=== PATIENT | male | born 1950 | race Caucasian/White ===

== ENCOUNTER 2019-02-10 19:14 | Inpatient (IN) | payer OTHER ==
--- NOTE | 2019-02-10 19:34 | PDOC ---
Rapid Medical Evaluation Time Seen by Provider: 02/10/19 19:16 Medical Evaluation: 02/10/19 19:17 Patient complains of: llq pain, elevated wbc, sent from urgent care had xray and scrotal u/s which were -, no fever or diarrhea, denies hx of GI Patient on brief exam: llq tenderness, vss Patient ordered for: abd ct, wbc,cbc, lipase, ua, ucx Patient to proceed to the ED Discharge Disposition - Diagnosis LLQ pain, Renal infarct - Discharge Dispostion Condition at time of disposition: Improved - Referrals - Patient Instructions - Post Discharge Activity
--- NOTE | 2019-02-10 20:51 | PDOC ---
History of Present Illness - General Chief Complaint: Pain Stated Complaint: REFERRAL FOR CT Time Seen by Provider: 02/10/19 19:16 History Source: Patient Exam Limitations: No Limitations - History of Present Illness Initial Comments: 68 yo M who denies having any medical hx - states he hasn't seen a doctor in 40 years presents to the ER sent from urgent care with LLQ abdominal pain which began last night at 3 am. He was seen at urgent care earlier today where they juan david labs that were significant for a mild leukocytosis and a abdominal x-ray and testicular US which were unremarkable. The patient was referred to the ER to have an abdominal cat scan to assess for diverticulitis. The patient rates his pain as 8/10, states it is constant in nature, has not gotten better or worse since it began this morning, and feels like a sharp stabbing pain. The patient denies any nausea or vomiting. His last bowel movement was this morning which he states might have been mildly loose and watery. Otherwise he denies any constipation or diarrhea. Patient also denies recent fevers, chills, or infections. Denies dysuria, frequency, or urgency. PCP: None PSH:None reported Social Hx: Denies smoking, drinking, or other substance usage. Allergies: NKA, NKDA Past History - Past Medical History Allergies/Adverse Reactions: Allergies Allergy/AdvReac Type Severity Reaction Status Date / Time No Known Allergies Allergy Verified 02/10/19 19:20 Home Medications: Ambulatory Orders NK [No Known Home Medication] 02/10/19 - Suicide/Smoking/Psychosocial Hx Smoking History: Never smoked Have you smoked in the past 12 months: No Information on smoking cessation initiated: No Hx Alcohol Use: No Drug/Substance Use Hx: No Review of Systems - Review of Systems Able to Perform ROS?: Yes Comments:: CONSTITUTIONAL: Absent: fever, no chills, no fatigue EYES: Absent: visual changes ENT: Absent: ear pain, no sore throat CARDIOVASCULAR: Absent: chest pain, no palpitations RESPIRATORY: Absent: cough, no SOB GI: Present: Abdominal pain Absent: no nausea, no vomiting, no constipation, no diarrhea GENITOURINARY: Absent: dysuria, no frequency, no hematuria MUSKULOSKELETAL: Absent: back pain, no arthralgia, no myalgia SKIN: Absent: rash NEURO: Absent: headache *Physical Exam - Vital Signs Last Vital Signs Temp Pulse Resp BP Pulse Ox 98.3 F 75 20 160/80 96 02/10/19 19:18 02/10/19 19:18 02/10/19 19:18 02/10/19 19:18 02/10/19 19:18 - Physical Exam Comments: GENERAL: Well-appearing, well-nourished. Mild distress. HEENT: Normocephalic, atraumatic. PERRL, EOM intact. CARDIOVASCULAR: Normal S1, S2. Regular rate and rhythm. PULMONARY: No evidence of respiratory distress. Lungs clear to auscultation bilaterally. No wheezing, rales or rhonchi. ABDOMEN: There is TTP in the LLQ. Normal bowel sounds. Abdomen is still soft and non- distended. The abdomen is not rigid and there is no guarding or rebound. EXTREMITIES: Normal ROM in all four extremities. No gross deformities. SKIN: Warm, dry. No rash NEUROLOGICAL: No focal neurological deficits. ED Treatment Course - LABORATORY CBC & Chemistry Diagram: 02/10/19 21:18 02/10/19 21:18 Medical Decision Making - Medical Decision Making 68 yo M who denies having any medical hx - states he hasn't seen a doctor in 40 years presents to the ER sent from urgent care with LLQ abdominal pain which began last night at 3 am. He was seen at urgent care earlier today where they juan david labs that were significant for a mild leukocytosis and a abdominal x-ray and testicular US which were unremarkable. The patient was referred to the ER to have an abdominal cat scan to assess for diverticulitis. The patient rates his pain as 8/10, states it is constant in nature, has not gotten better or worse since it began this morning, and feels like a sharp stabbing pain. The patient denies any nausea or vomiting. His last bowel movement was this morning which he states might have been mildly loose and watery. Otherwise he denies any constipation or diarrhea. Patient also denies recent fevers, chills, or infections. Denies dysuria, frequency, or urgency. Vital Signs Temp Pulse Resp BP Pulse Ox 98.3 F 75 20 160/80 96 02/10/19 19:18 02/10/19 19:18 02/10/19 19:18 02/10/19 19:18 02/10/19 19:18 DDx IBNLT: diverticulitis, colitis, UTI/Pylo, renal colic, testicular torsion Plan: Labs, Urine, CTAP, IV hydration, EKG, analgesia, re-assess. Labs show leukocytosis and a mildly elevated lactic acid I have placed an IV and sent labs I brought patient to CT Signing out patient to Dr. Ruth for further care and disposition. *DC/Admit/Observation/Transfer Diagnosis at time of Disposition: LLQ pain - Referrals Referrals: Alan Garcia MD [Staff Physician] - [facility] – [place] [facility] [place] [place] [Provider Group] - Patient Instructions - Post Discharge Activity
[2019-02-10] MEDS ORDERED: FAMOTIDINE 20 MG/50 ML IVPB 20 MG/50 ML MG IVPB ONE ×2 (21:01→21:29)
[2019-02-10] MEDS ORDERED: ACETAMINOPHEN 1000 MG/100 ML VIAL (NON FORMULARY) IVPB ONE (21:01)
[2019-02-10] MEDS ORDERED: SODIUM CHLORIDE 1,000 ML IV STA (21:01)
[2019-02-10] MEDS ORDERED: ACETAMINOPHEN INJECTION 100 ML IVPB ONE (21:29)
[2019-02-10 21:33] LABS: BASO % 0.3 % (0-2.0); HEMATOCRIT 39.6 % (35.4-49); HEMOGLOBIN 13.7 GM/dL (11.7-16.9); MCH 31.3 pg (25.7-33.7); MCHC 34.6 g/dl (32.0-35.9); MEAN CELL VOLUME 90.6 fl (80-96); MEAN PLT VOLUME 8.3 fl (7.5-11.1); MONO % 5.2 % (3.8-10.2); NEUT % 85.5 % (42.8-82.8); PLATELET COUNT 336 K/MM3 (134-434); RBC 4.38 M/mm3 (4.00-5.60); RDW 14.2 % (11.9-15.9); WHITE BLOOD COUNT 13.2 K/mm3 (4.0-10.0)
[2019-02-10 21:43] LABS: INR 1.17 (0.83-1.09); PROTHROMBIN TIME (PATIENT) 13.8 SEC (9.7-13.0)
[2019-02-10 21:55] LABS: ALBUMIN 3.8 g/dl (3.4-5.0); BILIRUBIN,TOTAL 0.6 mg/dL (0.2-1); BLOOD UREA NITROGEN 12.6 mg/dL (7-18); CALCIUM 9.4 mg/dL (8.5-10.1); CREATININE 1.1 mg/dL (0.55-1.3); POTASSIUM 4.4 mmol/L (3.5-5.1)
[2019-02-10 22:38] LABS: PH,URINE 5.5 (5.0-8.0); URINE APPEARANCE CLEAR; URINE BILIRUBIN NEGATIVE (NEGATIVE); URINE COLOR YELLOW; URINE GLUCOSE (UA) NEGATIVE (NEGATIVE); URINE KETONE TRACE (NEGATIVE); URINE LEUK ESTERASE NEGATIVE (NEGATIVE); URINE NITRITE NEGATIVE (NEGATIVE); URINE PROTEIN TRACE (NEGATIVE); URINE UROBILINOGEN 0.2 mg/dL (0.2-1.0)
[2019-02-10] MEDS ORDERED: SODIUM CHLORIDE 0.9% 1000 ML INFUS.BAG IV ONE (23:31)
--- NOTE | 2019-02-10 23:33 | PDOC ---
*Physical Exam - Vital Signs Last Vital Signs Temp Pulse Resp BP Pulse Ox 98.3 F 75 20 160/80 96 02/10/19 19:18 02/10/19 19:18 02/10/19 19:18 02/10/19 19:18 02/10/19 19:18 ED Treatment Course - LABORATORY CBC & Chemistry Diagram: 02/10/19 21:18 02/10/19 21:18 - ADDITIONAL ORDERS Additional order review: Laboratory Results 02/10/19 02/10/19 02/10/19 22:24 21:18 21:18 PT with INR 13.80 H INR 1.17 H Sodium Potassium Chloride Carbon Dioxide Anion Gap BUN Creatinine Est GFR (CKD-EPI)AfAm Est GFR (CKD-EPI)NonAf Random Glucose Lactic Acid Calcium Total Bilirubin AST ALT Alkaline Phosphatase Total Protein Albumin Lipase Urine Color Yellow Urine Appearance Clear Urine pH 5.5 Ur Specific [place] 1.027 Urine Protein Trace Urine Glucose (UA) Negative Urine Ketones Trace H Urine Blood Negative Urine Nitrite Negative Urine Bilirubin Negative Urine Urobilinogen 0.2 Ur Leukocyte Esterase Negative Blood Type O POSITIVE Antibody Screen Negative 02/10/19 02/10/19 21:18 21:18 PT with INR INR Sodium 132 L Potassium 4.4 Chloride 98 Carbon Dioxide 26 Anion Gap 8 BUN 12.6 Creatinine 1.1 Est GFR (CKD-EPI)AfAm 80.65 Est GFR (CKD-EPI)NonAf 69.58 Random Glucose 131 H Lactic Acid 2.1 H Calcium 9.4 Total Bilirubin 0.6 AST 87 H ALT 60 Alkaline Phosphatase 94 Total Protein 8.0 Albumin 3.8 Lipase 92 Urine Color Urine Appearance Urine pH Ur Specific [place] Urine Protein Urine Glucose (UA) Urine Ketones Urine Blood Urine Nitrite Urine Bilirubin Urine Urobilinogen Ur Leukocyte Esterase Blood Type Antibody Screen 02/10/19 21:18 RBC 4.38 MCV 90.6 MCHC 34.6 RDW 14.2 MPV 8.3 Neutrophils % 85.5 H Lymphocytes % 9.0 Monocytes % 5.2 Eosinophils % 0.0 Basophils % 0.3 - Medications Given in the ED: ED Medications Discontinued Medications Generic Name Dose Route Start Last Admin Trade Name Freq PRN Reason Stop Dose Admin Acetaminophen 1,000 mg 02/10/19 21:01 02/10/19 21:40 Ofirmev Injection - IVPB 02/10/19 21:02 1,000 mg ONCE ONE Administration Famotidine/Sodium Chloride 20 mg in 50 mls @ 100 mls/hr 02/10/19 21:01 22:00 Pepcid 20 Mg Premixed Ivpb - IVPB 02/10/19 21:30 100 mls/hr ONCE ONE Administration Sodium Chloride 1,000 mls @ 1,000 mls/hr 02/10/19 21:01 02/10/19 21:25 Normal Saline - IV 02/10/19 22:00 1,000 mls/hr ASDIR STA Administration Medical Decision Making - Medical Decision Making 02/10/19 23:32 Pt signed out to me by Dr. Antoine. 68M who presents with LLQ pain and mildly elevated lactic and leukocytosis concerning for diverticulitis. Pending CT read. UA negative. US of testicles from UC negative. 02/10/19 23:50 CT Impression: Segmental areas of nonenhancement in the left kidney some of which are wedge-shaped suggestive of nephritis/pyelonephritis. Differential diagnosis includes ischemic insult. However, there is normal enhancement of the left renal artery. If clinically indicated a CT angiogram of the abdominal aorta and renal arteries could be obtained. A few diverticula in the sigmoid colon without evidence of acute diverticulitis pain There are nondistended segments of the colon without gross wall thickening. Enlarged prostate gland. Vascular surgery paged for recs. 02/11/19 00:08 Vascular surgery paged x 2. 02/11/19 01:23 Case d/w Dr. Pires, vascular, who does not recommend any acute therapies and will follow the patient on an inpatient basis. Will microblog for admission. 02/11/19 01:[address] Grayson for admission. *DC/Admit/Observation/Transfer Diagnosis at time of Disposition: LLQ pain, Renal infarct - Discharge Dispostion Condition at time of disposition: Guarded Decision to Admit order: Yes - Referrals Referrals: [facility] [place] [facility] at [place] [Provider Group] Alan Garcia MD [Staff Physician] - - Patient Instructions - Post Discharge Activity
[2019-02-10] MEDS ORDERED: morphine CARPU-JECT 4 MG/1 ML DISP.SYRIN IVPUSH ONE (23:40)
[2019-02-10] MEDS ORDERED: morphine SULFATE 4 MG/ML VIAL ONE (23:47)
[2019-02-11] MEDS ORDERED: HYDROmorphone HCL CARPU-JECT 2 MG/1 ML DISP.SYRIN IVPUSH ONE (01:22)
[2019-02-11] MEDS ORDERED: HYDROmorphone HCl 2 MG/ML VIAL ONE (01:31)
--- NOTE | 2019-02-11 01:50 | PDOC ---
Documentation entered by Oracio Pugh SCRIBE, acting as scribe for Madelyn Sawyer DO. Madelyn Sawyer DO: This documentation has been prepared by the Keaton cooley Elijah, SCRIBE, under my direction and personally reviewed by me in its entirety. I confirm that the documentation accurately reflects all work , treatment, procedures, and medical decision making performed by me. Attending Attestation - Resident Resident Name: Ac Samuels - ED Attending Attestation I have performed the following: I have examined & evaluated the patient, The case was reviewed & discussed with the resident, I agree w/resident's findings & plan - HPI HPI: 02/10/19 21:56 The patient is a 68 year old male with no reported significant past medical history (Reports not seeing his doctor for 40 years) who presents to the ED with abdominal pain in the LLQ beginning the night prior at 3am. The patient rates the pain at an 8/10, constant, sharp and stabbing. LBM was this morning and he reports it being watery. The patient was seen at an urgent care earlier today and he had elevated WBCs but the Abdominal X-Ray and Testicular US were negative. He was told to come to the ED in order to get a CT scan to check for diverticulitis. Denies nausea, vomiting, constipation, diarrhea, fever, chills, infection, dysuria, Urinary frequency/Urgency. Allergies: NKA - Physicial Exam PE: 02/10/19 21:56 Agree with Residents exam - Medical Decision Making 02/11/19 01:48 68-year-old male with left lower quadrant and left flank pain CT scan of the abdomen and pelvis was performed initially to rule out diverticulitis, it was revealed there is a possible left renal infarct CTA was recommended, unfortunately the patient already received maximum dye load Call placed to vascular surgery for consultation, recommendation is for admission to medical service with CTA after hydration tomorrow
--- NOTE | 2019-02-11 01:59 | PN ---
Teaching Attending Note Name of Resident: Joel Grayson ATTENDING PHYSICIAN STATEMENT I saw and evaluated the patient. I reviewed the resident's note and discussed the case with the resident. I agree with the resident's findings and plan as documented. SUBJECTIVE: Seen and examined; please refer to resident note for further historical information. Briefly, this is a 68 y/o male presenting for abdominal pain radiating to the testicles. Pain startted early in the AM on 02/10. He went to urgent care and was found to have leukocytosis; had negative scrotal US and negative KUB so they were referred here for further workup with CT. He doesn't followup with any primary care physician. CT scan shows wedge-shaped enhancement in the L-kidney. Dr. Pires was contacted by the ER who will see the patient in AM and decide on further workup. Leukocytosis to 13k and mildly positive lactate. Negative UA and mild hyperglycemia and transaminitis noted. 10 sys ROS done and negative aside from HPI PMH, PSH, FH, SH reviewed Home Medications Medication Instructions Recorded NK [No Known Home Medication] 02/10/19 OBJECTIVE: VS, labs, imaging reviewed NAD, AAO, resting comfortably in bed NC AT EOMI PERRLA RRR s1/2 no mgr Lungs CTAB, w/ sym exp NT (just got pain meds at this point, though) ND +BS L-testicle non-tender CN2-12 wnl, no fnd Normal mood, appropriate behavior EKG reviewed CXR reviewed CT shows segmental areas of non-enhancment in the L-kidney someof which is wedge shaped suggesting nephritis or pyelonephritis or ischemic insult. ASSESSMENT AND PLAN: Patient presents with abdominal pain radiating to the testicle found to have area of wedge-shaped non-enhancement in his L-kidney; Dr. Pires is aware and will see the patient in the AM 1) Wedge-Shaped area of nonenchancement in the setting of abdominal pain -UA without signs of infection or blood making nephritis/pyelo less likely -PRN Dilaudid -Followup with Dr. Pires's recommendations; apprecaite expert input. Per ER: "Case d/w Dr. Pires, vascular, who does not recommend any acute therapies" 2) Elevated AST -Denies EtOH abuse; very mild. Trend CMP. Consider further imaging/hepatitis testing without resolution. 3) Leukocytosis -Trend CBC; may be reactive. No fevers. Negative UA 4) Mild Hyponatremia -Hydrating; checking serum osm. If worsens will obtain urine lytes and consider nephrology consult. Followup repeat BMP.
[2019-02-11] MEDS ORDERED: LACTATED RINGERS SOLUTION 1,000 ML IV SCH (02:15)
--- NOTE | 2019-02-11 02:30 | HP ---
CHIEF COMPLAINT: Abdominal Pain PCP: None HISTORY OF PRESENT ILLNESS: Pt. is a 68 y.o. M w/o PMHx. who presents to the ED from urgent care for abdominal pain that started at 3am 02/10/19. Pt. states that he also has developed left testicular pain as well. At the urgent care Pt. had a labs drawn that revealed leukocytosis. Pt. had a KUB and scrotal US which were negative for acute pathology. He was ten referred to the ED for an abdominal CT. Pt. denies taking any medications for the pain. Pt. states he has been feeling nauseous over this time and has had non-bloody emesis x 3. Pt. endorses 1 loose BM. Pt. denies any constipation, chest pain, palpitations, shortness of breath, fever, chills, or changes in urination. ER course was notable for: (1)CT A/P, IVF, UA/UCx. (2) Consult w/ Dr. Pires (3)Famotidine, Morphine, Dilaudid, IV Tylenol Recent Travel: Did not ask PAST MEDICAL HISTORY: Denies PAST SURGICAL HISTORY: Denies Social History: Smoking: Denies Alcohol: 11-12 12 Oz beers daily from [age], now denies Drugs: Denies Family History: Brother from Pancreatic CA @ 67, Father had massive VT @ 54 , Mother from CHF @ 76, Brother had history of clotting disorder Allergies No Known Allergies Allergy (Verified 02/10/19 19:20) HOME MEDICATIONS: Home Medications Medication Instructions Recorded NK [No Known Home Medication] 02/10/19 REVIEW OF SYSTEMS As above PHYSICAL EXAMINATION Vital Signs - 24 hr 02/10/19 19:18 Temperature 98.3 F Pulse Rate 75 Respiratory 20 Rate Blood Pressure 160/80 O2 Sat by Pulse 96 Oximetry (%) GENERAL: Awake, alert, and fully oriented, in no acute distress. HEAD: Normal with no signs of trauma. EYES: Pupils equal, round and reactive to light, extraocular movements intact, sclera anicteric, conjunctiva clear. EARS, NOSE, THROAT: Ears normal, nares patent, oropharynx clear without exudates. Moist mucous membranes. NECK: Normal range of motion, supple without lymphadenopathy, JVD, or masses. LUNGS: Breath sounds equal, clear to auscultation bilaterally. No wheezes, and no crackles. No accessory muscle use. HEART: Regular rate and rhythm, normal S1 and S2 without murmur ABDOMEN: Soft, nontender, not distended, normoactive bowel sounds, no guarding, no rebound, no masses. Tested non-tender. MUSCULOSKELETAL: Normal range of motion at all joints. No bony deformities or tenderness. No CVA tenderness. UPPER EXTREMITIES: Warm, well-perfused. No cyanosis. No clubbing. No peripheral edema. LOWER EXTREMITIES: 2+ pulses, warm, well-perfused. No calf tenderness. No peripheral edema. NEUROLOGICAL: Normal speech. Gait not assessed. PSYCHIATRIC: Cooperative. Good eye contact. Appropriate mood and affect. SKIN: Warm, dry, normal turgor, venous stasis changes, normal capillary refill. Laboratory Results - last 24 hr 02/10/19 02/10/19 02/10/19 21:18 21:18 21:18 WBC 13.2 H RBC 4.38 Hgb 13.7 Hct 39.6 MCV 90.6 MCH 31.3 MCHC 34.6 RDW 14.2 Plt Count 336 MPV 8.3 Absolute Neuts (auto) 11.3 H Neutrophils % 85.5 H Lymphocytes % 9.0 Monocytes % 5.2 Eosinophils % 0.0 Basophils % 0.3 Nucleated RBC % 0 PT with INR INR Sodium 132 L Potassium 4.4 Chloride 98 Carbon Dioxide 26 Anion Gap 8 BUN 12.6 Creatinine 1.1 Est GFR (CKD-EPI)AfAm 80.65 Est GFR (CKD-EPI)NonAf 69.58 Random Glucose 131 H Lactic Acid 2.1 H Calcium 9.4 Total Bilirubin 0.6 AST 87 H ALT 60 Alkaline Phosphatase 94 Total Protein 8.0 Albumin 3.8 Lipase 92 Urine Color Urine Appearance Urine pH Ur Specific [place] Urine Protein Urine Glucose (UA) Urine Ketones Urine Blood Urine Nitrite Urine Bilirubin Urine Urobilinogen Ur Leukocyte Esterase Blood Type Antibody Screen 02/10/19 02/10/19 02/10/19 21:18 21:18 22:24 WBC RBC Hgb Hct MCV MCH MCHC RDW Plt Count MPV Absolute Neuts (auto) Neutrophils % Lymphocytes % Monocytes % Eosinophils % Basophils % Nucleated RBC % PT with INR 13.80 H INR 1.17 H Sodium Potassium Chloride Carbon Dioxide Anion Gap BUN Creatinine Est GFR (CKD-EPI)AfAm Est GFR (CKD-EPI)NonAf Random Glucose Lactic Acid Calcium Total Bilirubin AST ALT Alkaline Phosphatase Total Protein Albumin Lipase Urine Color Yellow Urine Appearance Clear Urine pH 5.5 Ur Specific [place] 1.027 Urine Protein Trace Urine Glucose (UA) Negative Urine Ketones Trace H Urine Blood Negative Urine Nitrite Negative Urine Bilirubin Negative Urine Urobilinogen 0.2 Ur Leukocyte Esterase Negative Blood Type O POSITIVE Antibody Screen Negative ASSESSMENT/PLAN: Pt. is a 68 y.o. M w/o PMHx. who presents to the ED from urgent care for abdominal pain that started at 3am 02/10/19 with associated left testicular pain. #Abdominal Pain 2/[address] AP: shows segmental area of non-enhancement in left kidney, wedge shaped suggestive of ischemia, however renal enhancement of left renal artery, recommending CT angio of abdominal aorta and renal arteries Low suspicion for nephritis/pyelonephritis as Pt. has no blood in UA and has been afebrile Consult to Dr. Pires appreciated--> recommending observation, will evaluate in AM Will likely need AC on discharge versus endovascular intervention after Angiogram. f/u Lipid Panel LA: 2.1, f/u rpt. Leukocytosis to 13.2k, c/w trend f/u Factor V, Protein C & S studies #Isolated elevation in AST likely due to past history of EtOH abuse trend LFTs #Hyponatremia Na: 132, trend f/u Serum Osmolality #FEN LR @ 75ml/hr monitor electrolytes and replete as needed NPO, pending possible intervention in AM #DVT Ppx. TEDs/SCDs Visit type - Emergency Visit Emergency Visit: Yes ED Registration Date: 02/11/19 Care time: The patient presented to the Emergency Department on the above date and was hospitalized for further evaluation of their emergent condition. - New Patient This patient is new to me today: Yes Date on this admission: 02/11/19 - Critical Care Critical Care patient: No
[2019-02-11 03:30] LABS: CHOLESTEROL 186 mg/dL (50-200); HDL CHOLESTEROL 41 mg/dL (40-60); TRIGLYCERIDES 141 mg/dL (0-150)
[2019-02-11 03:51] LABS: OSMOLALITY,SERUM 279 mosm/kg (278-305)
[2019-02-11 05:01] VITALS: BMI 29.0
[2019-02-11] MEDS ORDERED: HEPARIN NA (PORCINE) 5,000 UNITS/ML 1ML VIAL SQ SCH (06:00)
[2019-02-11 07:23] LABS: BASO % 0.3 % (0-2.0); HEMOGLOBIN 12.6 GM/dL (11.7-16.9); LYMPH % 7.1 % (8-40); MCH 31.4 pg (25.7-33.7); MCHC 34.9 g/dl (32.0-35.9); MEAN CELL VOLUME 89.8 fl (80-96); MEAN PLT VOLUME 8.4 fl (7.5-11.1); MONO % 7.5 % (3.8-10.2); NEUT % 85.1 % (42.8-82.8); PLATELET COUNT 291 K/MM3 (134-434); RBC 4.01 M/mm3 (4.00-5.60)
[2019-02-11 07:47] LABS: ALBUMIN 3.2 g/dl (3.4-5.0); BILIRUBIN,TOTAL 0.6 mg/dL (0.2-1); BLOOD UREA NITROGEN 9.5 mg/dL (7-18); CALCIUM 8.7 mg/dL (8.5-10.1); PHOSPHOROUS 3.5 mg/dL (2.5-4.9); POTASSIUM 4.5 mmol/L (3.5-5.1); TOT PROT 6.7 g/dl (6.4-8.2)
--- NOTE | 2019-02-11 08:08 | EKG ---
Test Reason : Blood Pressure : / mmHG Vent. Rate : 082 BPM Atrial Rate : 082 BPM P-R Int : 200 ms QRS Dur : 102 ms QT Int : 398 ms P-R-T Axes : 030 -23 034 degrees QTc Int : 464 ms NORMAL SINUS RHYTHM WITH SINUS ARRHYTHMIA INFERIOR INFARCT , AGE UNDETERMINED ABNORMAL ECG NO PREVIOUS ECGS AVAILABLE Confirmed by PEGGY SMITH MD ([id number]) on 02/11/2019 8:07:50 AM Referred By: Confirmed By:PEGGY SMITH MD
[2019-02-11] MEDS: HYDROmorphone HCl 2 MG/ML VIAL IVPB PRN ×2 (08:20→20:35)
--- NOTE | 2019-02-11 08:39 | CONSULT ---
- Consultation REQUESTING PROVIDER: CONSULT REQUEST: We have been asked to surgically evaluate this patient for (? renal infarct). PCP:Faustino Rose MD HISTORY OF PRESENT ILLNESS: 68 y/o M w/ no known PMHx (has not been to [facility] in > 30 years), now admitted after being sent to ED from urgent care center for abdominal pain. Pt reports he began having pain in the left side of his abdomen on Saturday. Reports pain was 6/10 beginning over the left side of his abdomen and radiating into his left testicle. Reports accompanied nausea and emesis of his breakfast and coffee x 3. Denies taking any OTC meds for pain. Denies fevers /chills, prior h/o kindey stone/urologic issues, h/o prior known infartcs/dvts/ pes, urinary frequency, dysuria, constipation. Had 1 loose BM. At urgent care pt had a KUB and scrotal US which were negative for acute pathology. PMHx: unknown (has not seen PCP in >30 years) PSHx: Denies Home Medications Medication Instructions Recorded NK [No Known Home Medication] 02/10/19 Allergies Allergy/AdvReac Type Severity Reaction Status Date / Time No Known Allergies Allergy Verified 02/10/19 19:20 REVIEW OF SYSTEMS: CONSTITUTIONAL: Absent: fever, chills CARDIOVASCULAR: Absent: chest pain RESPIRATORY: Absent: cough, shortness of breath GASTROINTESTINAL: +abdominal pain GENITOURINARY: Absent: dysuria, frequency, urgency PHYSICAL EXAM: GENERAL: Awake, alert, and fully oriented, in no acute distress. HEAD: Normal with no signs of trauma. ABDOMEN: Soft, minimal ttp L mid quadrant and LLQ. No distention, normoactive bowel sounds, no guarding, no rebound. MUSCULOSKELETAL: Normal ROM at all joints. No bony deformities or tenderness. No CVA tenderness. Vital Signs Temperature 98.4 F 02/11/19 06:56 Pulse Rate 78 02/11/19 06:56 Respiratory Rate 20 02/11/19 06:56 Blood Pressure 133/90 02/11/19 06:56 O2 Sat by Pulse Oximetry (%) 95 02/11/19 03:00 Lab Results WBC 13.2 K/mm3 (4.0-10.0) H 02/10/19 21:18 RBC 4.38 M/mm3 (4.00-5.60) 02/10/19 21:18 Hgb 13.7 GM/dL (11.7-16.9) 02/10/19 21:18 Hct 39.6 % (35.4-49) 02/10/19 21:18 MCV 90.6 fl (80-96) 02/10/19 21:18 MCHC 34.6 g/dl (32.0-35.9) 02/10/19 21:18 RDW 14.2 % (11.9-15.9) 02/10/19 21:18 Plt Count 336 K/MM3 (134-434) 02/10/19 21:18 Sodium 133 mmol/L (136-145) L 02/11/19 06:30 Potassium 4.5 mmol/L (3.5-5.1) 02/11/19 06:30 Chloride 100 mmol/L (98-107) 02/11/19 06:30 Carbon Dioxide 27 mmol/L (21-32) 02/11/19 06:30 Anion Gap 6 MMOL/L (8-16) L 02/11/19 06:30 BUN 9.5 mg/dL (7-18) 02/11/19 06:30 Creatinine 1.0 mg/dL (0.55-1.3) 02/11/19 06:30 Random Glucose 112 mg/dL (74-106) H 02/11/19 06:30 Calcium 8.7 mg/dL (8.5-10.1) 02/11/19 06:30 Blood Type O POSITIVE 02/10/19 21:18 Antibody Screen Negative 02/10/19 21:18 INR 1.17 (0.83-1.09) H 02/10/19 21:18 CT abdo/pelvis with contrast (02/10/19): Segmental areas of nonenhancement in the left kidney some of which are wedge-shaped suggestive of nephritis/ pyelonephritis. Differential diagnosis includes ischemic insult. However, there is normal enhancement of the left renal artery. If clinically indicated a CT angio of the abdominal aorta and renal arteries could be obtained. A/P: 68 y/o M w/ no known PMHx (has not been to [facility] in >30 years), now admitted after being sent to ED from urgent care center for abdominal pain. Ct with ?of ischemic insult. Pt with normal creatinine, admitted with leukocytosis of 13k. Urine culture pending. SXS more consistent with infectious process than vascular issue -CTA abdo/pelvis per Dr Pires for delination of anatomy and r/o of infarct d/w attending Dr Pires
[2019-02-11] MEDS ORDERED: CEFTRIAXONE 1 GM in DEXTROSE 5%-WATER - 50 ML IVPB SCH (10:15)
--- NOTE | 2019-02-11 13:13 | PN ---
Physical Exam: SUBJECTIVE: Patient seen this morning and complaints of pain in his testicle and abdomen. OBJECTIVE: Vital Signs Temperature 98.4 F 02/11/19 06:56 Pulse Rate 78 02/11/19 06:56 Respiratory Rate 20 02/11/19 06:56 Blood Pressure 133/90 02/11/19 06:56 O2 Sat by Pulse Oximetry (%) 95 02/11/19 03:00 GENERAL: The patient is awake, alert, and fully oriented, in no acute distress. HEAD: Normal with no signs of trauma. EYES: PERRL, extraocular movements intact ENT: moist mucous membranes. LUNGS: Breath sounds equal, clear to auscultation bilaterally, no wheezes, no crackles, no accessory muscle use. HEART: Regular rate and rhythm, S1, S2 without murmur, rub or gallop. ABDOMEN: left sided distension, soft mid epigastric, no tenderness : no pain on palpation of left testicle, no erythema, no swelling EXTREMITIES: 2+ pulses, warm, well-perfused, no edema. SKIN: Warm, dry, normal turgor, no rashes or lesions noted CBC, BMP 02/11/19 06:30 02/11/19 06:30 Active Medications Hydromorphone HCl (Dilaudid Vial -) 2 mg IVPB Q2H PRN PRN Reason: PAIN LEVEL 7 - 10 Last Admin: 02/11/19 08:20 Dose: 2 mg Lactated Ringer's (Lactated Ringers Solution) 1,000 mls @ 75 mls/hr IV ASDIR MUKESH Ceftriaxone Sodium 1 gm/ (Dextrose) 50 mls @ 100 mls/hr IVPB DAILY MUKESH; Protocol ASSESSMENT/PLAN: Patient is a 68 y/o male with no past medical history who presents for abdominal pain and testicular pain. #abdominal pain and testicular pain - r/o pyelonephritis vs vascular infarction - CT: segmental areas of nonenhancement in the left kidney some which are wedge shaped, few diverticula in sigmoid colon without eveidence of acute diverticulitis pain, enlarged prostate gland - dilaudid 2mg q2 prn pain - f/u CTA - spoke with Dr. Pires: unlikely vascular in nature, would cover for pyelo - hypercoaguable workup. follow up labs - started patient on Ceftriaxone #DVT ppx - SCD's ppx FEN - LR @100 - regular diet Dispo: continue to monitor Visit type - Emergency Visit Emergency Visit: No - New Patient This patient is new to me today: No - Critical Care Critical Care patient: No
[2019-02-11] MEDS ORDERED: DEXTROSE 5%-WATER - 50 ML IVPB ONE (13:25)
[2019-02-11] MEDS ORDERED: cefTRIAXone SODIUM 1 GM VIAL ONE (13:25)
--- NOTE | 2019-02-11 17:25 | PN ---
Teaching Attending Note Name of Resident: Belle Reid ATTENDING PHYSICIAN STATEMENT I saw and evaluated the patient. I reviewed the resident's note and discussed the case with the resident. I agree with the resident's findings and plan as documented. SUBJECTIVE: L flank/abdominal pain improving. No dysuria/fever/chills. OBJECTIVE: Tmax 100.9, febrile, Hemodynamically Stable Last Vital Signs Temp Pulse Resp BP Pulse Ox 100.9 F H 78 20 116/62 95 02/11/19 17:19 02/11/19 17:19 02/11/19 17:19 02/11/19 17:19 02/11/19 09:00 HEENT - Atraumatic, Normocephalic. Heart -S1, S2, RRR Lungs - clear to auscultation Abdomen - soft, left flank tenderness. Bowel Sounds normal. Extremities - LE venous stasis skin changes Laboratory Results - last 24 hr 02/10/19 02/10/19 02/10/19 21:18 21:18 21:18 WBC 13.2 H RBC 4.38 Hgb 13.7 Hct 39.6 MCV 90.6 MCH 31.3 MCHC 34.6 RDW 14.2 Plt Count 336 MPV 8.3 Absolute Neuts (auto) 11.3 H Neutrophils % 85.5 H Lymphocytes % 9.0 Monocytes % 5.2 Eosinophils % 0.0 Basophils % 0.3 Nucleated RBC % 0 PT with INR INR Sodium 132 L Potassium 4.4 Chloride 98 Carbon Dioxide 26 Anion Gap 8 BUN 12.6 Creatinine 1.1 Est GFR (CKD-EPI)AfAm 80.65 Est GFR (CKD-EPI)NonAf 69.58 Random Glucose 131 H Hemoglobin A1c % Serum Osmolality Lactic Acid 2.1 H Calcium 9.4 Phosphorus Magnesium Total Bilirubin 0.6 AST 87 H ALT 60 Alkaline Phosphatase 94 Total Protein 8.0 Albumin 3.8 Triglycerides Cholesterol Total LDL Cholesterol HDL Cholesterol Lipase 92 Urine Color Urine Appearance Urine pH Ur Specific Allons Urine Protein Urine Glucose (UA) Urine Ketones Urine Blood Urine Nitrite Urine Bilirubin Urine Urobilinogen Ur Leukocyte Esterase Blood Type Antibody Screen 02/10/19 02/10/19 02/10/19 21:18 21:18 22:24 WBC RBC Hgb Hct MCV MCH MCHC RDW Plt Count MPV Absolute Neuts (auto) Neutrophils % Lymphocytes % Monocytes % Eosinophils % Basophils % Nucleated RBC % PT with INR 13.80 H INR 1.17 H Sodium Potassium Chloride Carbon Dioxide Anion Gap BUN Creatinine Est GFR (CKD-EPI)AfAm Est GFR (CKD-EPI)NonAf Random Glucose Hemoglobin A1c % Serum Osmolality Lactic Acid Calcium Phosphorus Magnesium Total Bilirubin AST ALT Alkaline Phosphatase Total Protein Albumin Triglycerides Cholesterol Total LDL Cholesterol HDL Cholesterol Lipase Urine Color Yellow Urine Appearance Clear Urine pH 5.5 Ur Specific Allons 1.027 Urine Protein Trace Urine Glucose (UA) Negative Urine Ketones Trace H Urine Blood Negative Urine Nitrite Negative Urine Bilirubin Negative Urine Urobilinogen 0.2 Ur Leukocyte Esterase Negative Blood Type O POSITIVE Antibody Screen Negative 02/11/19 02/11/19 02/11/19 02:55 02:55 02:55 WBC RBC Hgb Hct MCV MCH MCHC RDW Plt Count MPV Absolute Neuts (auto) Neutrophils % Lymphocytes % Monocytes % Eosinophils % Basophils % Nucleated RBC % PT with INR INR Sodium Potassium Chloride Carbon Dioxide Anion Gap BUN Creatinine Est GFR (CKD-EPI)AfAm Est GFR (CKD-EPI)NonAf Random Glucose Hemoglobin A1c % 5.8 Serum Osmolality 279 Lactic Acid 1.1 Calcium Phosphorus Magnesium Total Bilirubin AST ALT Alkaline Phosphatase Total Protein Albumin Triglycerides 141 Cholesterol 186 Total LDL Cholesterol 130 H HDL Cholesterol 41 Lipase Urine Color Urine Appearance Urine pH Ur Specific Allons Urine Protein Urine Glucose (UA) Urine Ketones Urine Blood Urine Nitrite Urine Bilirubin Urine Urobilinogen Ur Leukocyte Esterase Blood Type Antibody Screen 02/11/19 02/11/19 02/11/19 06:30 06:30 10:22 WBC 14.0 H RBC 4.01 Hgb 12.6 Hct 36.0 MCV 89.8 MCH 31.4 MCHC 34.9 RDW 14.0 Plt Count 291 MPV 8.4 Absolute Neuts (auto) 11.9 H Neutrophils % 85.1 H Lymphocytes % 7.1 L D Monocytes % 7.5 Eosinophils % 0.0 Basophils % 0.3 Nucleated RBC % 0 PT with INR INR Sodium 133 L Potassium 4.5 Chloride 100 Carbon Dioxide 27 Anion Gap 6 L BUN 9.5 Creatinine 1.0 Est GFR (CKD-EPI)AfAm 90.50 Est GFR (CKD-EPI)NonAf 78.08 Random Glucose 112 H Hemoglobin A1c % Serum Osmolality Lactic Acid Calcium 8.7 Phosphorus 3.5 Magnesium 2.0 Total Bilirubin 0.6 AST 88 H ALT 64 H Alkaline Phosphatase 79 Total Protein 6.7 Albumin 3.2 L Triglycerides Cholesterol Total LDL Cholesterol HDL Cholesterol Lipase Urine Color Urine Appearance Urine pH Ur Specific Allons Urine Protein Urine Glucose (UA) Urine Ketones Urine Blood Urine Nitrite Urine Bilirubin Urine Urobilinogen Ur Leukocyte Esterase Blood Type O POSITIVE Antibody Screen Current Medications Generic Name Dose Route Start Last Admin Trade Name Abeba PRN Reason Stop Dose Admin Hydromorphone HCl 2 mg 02/11/19 02:08 02/11/19 08:20 Dilaudid Vial - IVPB 2 mg Q2H PRN Administration PAIN LEVEL 7 - 10 Lactated Ringer's 1,000 mls @ 75 mls/hr 02/11/19 02:15 Lactated Ringers Solution IV ASDIR MUKESH Ceftriaxone Sodium 1 gm/ 50 mls @ 100 mls/hr 02/11/19 10:15 02/11/19 13:29 Dextrose IVPB 100 mls/hr DAILY MUKESH Administration Protocol ASSESSMENT/PLAN: 68 year old male with no significant PMH presented with L sided abdominal pain radiating to groin/testicles. No fever/chills/nausea/vomiting. US Testicles reported normal (done at [facility]) CT shows segmental areas of non-enhancement in the L-kidney some of which is wedge shaped suggesting nephritis or pyelonephritis or ischemic insult. 1. Acute Renal Infarct ?embolic Confirmed on CTA Vascular Surgery consulted and recommended empiric treatment for Pyelonephritis. Will start Lovenox SQ and order Echo with bubble study. Hematology consulted for Thrombophilia. 2. Sepsis secondary to UTI/Pyelonephritis Fever, leukocytosis Empirically covered with Ceftriaxone. Will continue Ceftriaxone pending Urine Cx results. 3. Elevated Transaminases, etiology unclear, possibly sec to sepsis. CT imaging shows hepatic cyst and mild fatty infiltration. Will monitor LFTs. Further imaging if any worsening of hepatic function. DVT Px - On Lovenox SQ
[2019-02-11] MEDS ORDERED: ENOXAPARIN NA (PORCINE) 40 MG/0.4 ML DISP.SYRIN SQ SCH (17:26)
[2019-02-11] MEDS: ENOXAPARIN NA (PORCINE) 100 MG/1 ML DISP.SYRIN SQ SCH (21:53)
--- NOTE | 2019-02-11 23:35 | PN ---
Progress Note (short form) - Note Progress Note: Vascular Surgery CTA reviewed - infarct in left kidney. Left main renal artery is patent. This could be embolic. Agree with echo. Cardiology eval Will follow Minesh Pires DO
[2019-02-12] MEDS: HYDROmorphone HCl 2 MG/ML VIAL IVPB PRN (07:40)
[2019-02-12 08:25] LABS: HEMATOCRIT 36.6 % (35.4-49); HEMOGLOBIN 12.6 GM/dL (11.7-16.9); MCH 30.9 pg (25.7-33.7); MCHC 34.5 g/dl (32.0-35.9); MEAN CELL VOLUME 89.8 fl (80-96); MEAN PLT VOLUME 8.6 fl (7.5-11.1); PLATELET COUNT 258 K/MM3 (134-434); RBC 4.08 M/mm3 (4.00-5.60); RDW 14.2 % (11.9-15.9); WHITE BLOOD COUNT 18.1 K/mm3 (4.0-10.0)
[2019-02-12 08:34] LABS: ALBUMIN 2.9 g/dl (3.4-5.0); BILIRUBIN,TOTAL 0.9 mg/dL (0.2-1); BLOOD UREA NITROGEN 10.1 mg/dL (7-18); CALCIUM 8.6 mg/dL (8.5-10.1); POTASSIUM 3.6 mmol/L (3.5-5.1); TOT PROT 6.5 g/dl (6.4-8.2)
[2019-02-12] MEDS ORDERED: cefTRIAXone SODIUM 1 GM VIAL ONE (08:53)
[2019-02-12] MEDS ORDERED: DEXTROSE 5%-WATER - 50 ML IVPB ONE (08:53)
[2019-02-12] MEDS ORDERED: PT OWN MED DRAWER 7, Y5N ONE (09:05)
[2019-02-12] MEDS: ENOXAPARIN NA (PORCINE) 100 MG/1 ML DISP.SYRIN SQ SCH ×2 (09:07→22:43)
[2019-02-12] MEDS ORDERED: HYDROmorphone HCL 2 MG TABLET PO PRN ×2 (09:18→21:27)
[2019-02-12] MEDS ORDERED: CEFTRIAXONE 1 GM in DEXTROSE 5%-WATER - 50 ML IVPB SCH (10:00)
--- NOTE | 2019-02-12 11:34 | PN ---
Teaching Attending Note Name of Resident: Belle Reid ATTENDING PHYSICIAN STATEMENT I saw and evaluated the patient. I reviewed the resident's note and discussed the case with the resident. I agree with the resident's findings and plan as documented. SUBJECTIVE: L flank/abdominal pain improved. No dysuria/fever/chills. No hematuria OBJECTIVE: Tmax 100.9, now 99.9, Hemodynamically Stable Last Vital Signs Temp Pulse Resp BP Pulse Ox 99.9 F H 89 20 135/77 95 02/12/19 07:21 02/12/19 07:21 02/12/19 07:21 02/12/19 07:21 02/11/19 21:00 Heart -S1, S2, RRR Lungs - clear to auscultation Abdomen - soft, mild left flank tenderness. No CVA tenderness. Bowel Sounds normal. Extremities - LE venous stasis skin changes, edema R> L Laboratory Results - last 24 hr 02/11/19 02/12/19 02/12/19 10:22 07:40 07:40 WBC 18.1 H RBC 4.08 Hgb 12.6 Hct 36.6 MCV 89.8 MCH 30.9 MCHC 34.5 RDW 14.2 Plt Count 258 MPV 8.6 Sodium 132 L Potassium 3.6 Chloride 99 Carbon Dioxide 26 Anion Gap 7 L BUN 10.1 Creatinine 1.0 Est GFR (CKD-EPI)AfAm 90.50 Est GFR (CKD-EPI)NonAf 78.08 Random Glucose 97 Calcium 8.6 Total Bilirubin 0.9 AST 79 H ALT 67 H Alkaline Phosphatase 76 Total Protein 6.5 Albumin 2.9 L Blood Type O POSITIVE Current Medications Generic Name Dose Route Start Last Admin Trade Name Freq PRN Reason Stop Dose Admin Enoxaparin Sodium 95 mg 02/11/19 19:10 02/12/19 09:07 Lovenox - SQ 95 mg BID MUKESH Administration Hydromorphone HCl 2 mg 02/12/19 09:18 Dilaudid - PO Q6H PRN PAIN LEVEL 6-10 Ceftriaxone Sodium 1 gm/ 50 mls @ 100 mls/hr 02/12/19 10:00 02/12/19 08:59 Dextrose IVPB 100 mls/hr DAILY MUKESH Administration Protocol ASSESSMENT/PLAN: 68 year old male with no significant PMH presented with L sided abdominal pain radiating to groin/testicles. No fever/chills/nausea/vomiting. US Testicles reported normal (done at urgent care) CT shows segmental areas of non-enhancement in the L-kidney some of which is wedge shaped suggesting nephritis or pyelonephritis or ischemic insult. 1. Acute Renal Infarct ?embolic Confirmed on CTA Vascular Surgery consulted. Started on therapeutic Lovenox SQ. Echo with bubble study, Duplex LEs, and Cardiology consult requested for possible embolic phenomenon. Hematology consulted for Thrombophilia. 2. Sepsis secondary to possible UTI/Pyelonephritis Fever resolving, leukocytosis worsening Empirically covered with Ceftriaxone. Will continue Ceftriaxone. If any further fevers, will switch to Zosyn and consult ID. 3. Elevated Transaminases, etiology unclear, possibly sec to sepsis. CT imaging shows hepatic cyst and mild fatty infiltration. Hepatitis panel requested. Will monitor LFTs. Further imaging if any worsening of hepatic function. DVT Px - On Lovenox SQ
--- NOTE | 2019-02-12 13:04 | PN ---
Physical Exam: SUBJECTIVE: Patient seen this morning and reports he still has some pain. Explained to the patient that he has a left kidney infarct. Patient's brother has a history of DVT once and is on elliquis. No history of stroke or known clotting disorders in the family. Patient was febrile overnight. OBJECTIVE: Vital Signs Temperature 99.9 F H 02/12/19 07:21 Pulse Rate 89 02/12/19 07:21 Respiratory Rate 20 02/12/19 07:21 Blood Pressure 135/77 02/12/19 07:21 O2 Sat by Pulse Oximetry (%) 95 02/11/19 21:00 GENERAL: The patient is awake, alert, and fully oriented, in no acute distress. HEAD: Normal with no signs of trauma. EYES: PERRL, extraocular movements intact ENT: moist mucous membranes. LUNGS: Breath sounds equal, clear to auscultation bilaterally, no wheezes, no crackles, no accessory muscle use. HEART: Regular rate and rhythm, S1, S2 without murmur, rub or gallop. ABDOMEN: left sided distension, soft mid epigastric, no tenderness : no pain on palpation of left testicle, no erythema, no swelling EXTREMITIES: 2+ pulses, warm, well-perfused, no edema. SKIN: Warm, dry, normal turgor, no rashes or lesions noted CBC, BMP 02/12/19 07:40 02/12/19 07:40 Active Medications Enoxaparin Sodium (Lovenox -) 95 mg SQ BID [facility] Last Admin: 02/12/19 09:07 Dose: 95 mg Hydromorphone HCl (Dilaudid -) 2 mg PO Q6H PRN PRN Reason: PAIN LEVEL 6-10 Ceftriaxone Sodium 1 gm/ (Dextrose) 50 mls @ 100 mls/hr IVPB DAILY [facility]; Protocol Last Admin: 02/12/19 08:59 Dose: 100 mls/hr ASSESSMENT/PLAN: Patient is a 68 y/o male with no past medical history who presents for abdominal pain and testicular pain. #infarct of left kidney - vascular infarction, cannot r/o pyelo - CT: segmental areas of nonenhancement in the left kidney some which are wedge shaped, few diverticula in sigmoid colon without eveidence of acute diverticulitis pain, enlarged prostate gland - ABD CTA; widely patent main left renal artery, large left renal hypoperfusion questionable perfusion in distal segmental and interlobar arteries - dilaudid 2mg q6 prn pain - loveno 95 bid - hypercoaguable workup, follow up labs - f/u echo - f/u lower extremity duplex #sepsis, 2/2 to UTI vs Pyelonpehritis - leukocytosis resolving, febrile overnight - f/u cxs and if negative and afebrile can dc abx - continue Ceftriaxone - if fevers continue or cultures are positive will switch to Zosyn and consult ID - CXR: clear #DVT ppx - patient on lovenox FEN - LR @100 - regular diet Dispo: continue to monitor on med surg Visit type - Emergency Visit Emergency Visit: No - New Patient This patient is new to me today: No - Critical Care Critical Care patient: No
--- NOTE | 2019-02-12 14:27 | CON.CARD ---
Consult Consult Specialty:: cardiology Referred by:: bk Reason for Consultation:: Rule out cardioembolic events, renal infarct - History of Present Illness Chief Complaint: Abdominal pain History of Present Illness: The patient is a 68-year-old man with no significant past medical history, not followed closely by a physician, admitted with left lower quadrant abdominal pain, found to have an acute renal infarct on his CTA. The patient is septic with urinary tract infection and pyelonephritis. X At baseline he walks without any important limitations nor symptoms. Denied history of coronary artery disease and angina. No palpitations. No shortness of breath. The patient is current comfortable but admits to mild abdominal discomfort. - History Source History Provided By: Patient, Medical Record Limitations to Obtaining History: No Limitations - Alcohol/Substance Use Hx Alcohol Use: No - Smoking History Smoking history: Never smoked Have you smoked in the past 12 months: No Home Medications - Allergies Allergies/Adverse Reactions: Allergies Allergy/AdvReac Type Severity Reaction Status Date / Time No Known Allergies Allergy Verified 02/10/19 19:20 - Home Medications Home Medications: Ambulatory Orders NK [No Known Home Medication] 02/10/19 Review of Systems - Review of Systems Constitutional: reports: Chills, Fever, Weakness Eyes: reports: No Symptoms HENT: reports: No Symptoms Neck: reports: No Symptoms Cardiovascular: reports: No Symptoms Respiratory: reports: No Symptoms Gastrointestinal: reports: Abdominal Pain Genitourinary: reports: Dysuria, Flank Pain, Urgency Breasts: reports: No Symptoms Reported Musculoskeletal: reports: No Symptoms Integumentary: reports: No Symptoms Neurological: reports: No Symptoms Endocrine: reports: No Symptoms Hematology/Lymphatic: reports: No Symptoms Psychiatric: reports: No Symptoms Vital Signs: Vital Signs Temperature 99.9 F H 02/12/19 07:21 Pulse Rate 89 02/12/19 07:21 Respiratory Rate 20 02/12/19 07:21 Blood Pressure 135/77 02/12/19 07:21 O2 Sat by Pulse Oximetry (%) 95 02/11/19 21:00 Constitutional: Yes: Well Nourished, No Distress, Calm Eyes: Yes: WNL, Conjunctiva Clear, EOM Intact HENT: Yes: WNL, Atraumatic, Normocephalic Neck: Yes: WNL, Supple, Trachea Midline Respiratory: Yes: WNL, Regular, CTA Bilaterally Gastrointestinal: Yes: WNL, Normal Bowel Sounds, Soft Renal/: Yes: CVA Tenderness - Left, CVA Tenderness - Right Cardiovascular: Yes: WNL, Regular Rate and Rhythm JVD: No Carotid Bruit: No PMI: Non-Displaced Heart Sounds: Yes: S1, S2 Murmur: Yes: Systolic Murmur, Grade 2 Musculoskeletal: Yes: WNL Extremities: Yes: WNL Edema: No Peripheral Pulses WNL: Yes Integumentary: Yes: WNL Neurological: Yes: WNL, Alert, Oriented ...Motor Strength: WNL Psychiatric: Yes: WNL - Other Data Labs, Other Data: CBC, BMP 02/12/19 07:40 02/12/19 07:40 INR, PTT INR 1.17 (0.83-1.09) H 02/10/19 21:18 Assessment/Plan The patient is a 68-year-old man with no significant past medical history, not followed closely by a physician, admitted with left lower quadrant abdominal pain, found to have an acute renal infarct on his CTA. The patient is septic with urinary tract infection and pyelonephritis. X At baseline he walks without any important limitations nor symptoms. Denied history of coronary artery disease and angina. No palpitations. No shortness of breath. The patient is current comfortable but admits to mild abdominal discomfort. The patient is in sinus rhythm. 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 No arrhythmias noted at this point. No evidence of paroxysmal atrial fibrillation or flutter. Strongly consider transferring to a monitored setting to rule out paroxysmal atrial fibrillation as the etiology of the renal infarct. Please arrange for an echocardiogram to evaluate his left ventricular systolic function. No need for further critical workup at this point. The patient is stable. We'll follow results.
--- NOTE | 2019-02-12 14:56 | CONSULT ---
Consultation: REQUESTING PROVIDER: CONSULT REQUEST: We have been asked to medically evaluate this patient for renal infarct. HISTORY OF PRESENT ILLNESS: The patient is a 68 y/o M with PMHx of psoriasis who came with abdominal pain, found to have left kidney infarct found on imaging (CT abdomen/pelvis, CTA). Hem/Oncology was consulted for renal infarct, possible due to emboli. Today he is complaining of left abdominal pain and left scrotal pain, fever, chills, nausea. Denies PE, DVT in the past, not seeing PCP in years. PAST MEDICAL HISTORY: Denies PAST SURGICAL HISTORY: Denies Social History: Smoking: Denies. Alcohol: quit years ago. Drugs: Denies Family History: Brother from Pancreatic [place] at 67, Father had massive LA at 54, Mother from CHF at 76, Brother had DVT bilaterally REVIEW OF SYSTEMS: CONSTITUTIONAL: fever, chills, Absent: diaphoresis, generalized weakness, malaise, loss of appetite, weight change HEENT: Absent: rhinorrhea, nasal congestion, difficulty swallowing CARDIOVASCULAR: Absent: chest pain, syncope, palpitations, irregular heart rate, peripheral edema RESPIRATORY: Absent: cough, shortness of breath, dyspnea with exertion, orthopnea, wheezing GASTROINTESTINAL: nausea, abdominal pain, Absent: abdominal distension, vomiting, diarrhea, constipation, melena, hematochezia GENITOURINARY: Absent: dysuria, frequency, urgency, hesitancy, hematuria, flank pain MUSCULOSKELETAL: Absent: myalgia, arthralgia, joint swelling, back pain, neck pain SKIN: Absent: rash, itching, pallor HEMATOLOGIC/IMMUNOLOGIC: Absent: easy bleeding, easy bruising, lymphadenopathy, frequent infections ENDOCRINE: Absent: unexplained weight gain, unexplained weight loss NEUROLOGIC: Absent: headache, focal weakness or paresthesias, dizziness PSYCHIATRIC: Absent: anxiety, depression PHYSICAL EXAMINATION Vital Signs - 24 hr 02/11/19 02/11/19 02/11/19 17:19 20:40 21:00 Temperature 100.9 F H 99.7 F H Pulse Rate 78 88 Respiratory 20 18 Rate Blood Pressure 116/62 143/70 O2 Sat by Pulse 95 Oximetry (%) 02/12/19 07:21 Temperature 99.9 F H Pulse Rate 89 Respiratory 20 Rate Blood Pressure 135/77 O2 Sat by Pulse Oximetry (%) GENERAL: Awake, alert, and fully oriented, in no acute distress, flushed face. HEAD: Normal with no signs of trauma. EYES: Extraocular movements intact, sclera anicteric, conjunctiva clear. EARS, NOSE, THROAT: Oropharynx clear without exudates. Moist mucous membranes. NECK: Normal range of motion, supple without lymphadenopathy, JVD, or masses. LUNGS: Breath sounds equal, clear to auscultation bilaterally. No wheezes, and no crackles. No accessory muscle use. HEART: Regular rate and rhythm, normal S1 and S2 without murmur, rub or gallop. ABDOMEN: Soft, tender on left side, distended, normoactive bowel sounds, no guarding, no rebound, no masses. MUSCULOSKELETAL: No bony deformities or tenderness. UPPER EXTREMITIES: No peripheral edema. LOWER EXTREMITIES: 2+ pulses. No calf tenderness. No peripheral edema. NEUROLOGICAL: Non focal. Normal speech. PSYCHIATRIC: Cooperative. Good eye contact. Appropriate mood and affect. SKIN: Warm, dry, normal turgor, rash in elbows, legs, abdomen. TESTES: no masses, no rash, no tenderness, symmetric Laboratory Results - last 24 hr 02/12/19 02/12/19 07:40 07:40 WBC 18.1 H RBC 4.08 Hgb 12.6 Hct 36.6 MCV 89.8 MCH 30.9 MCHC 34.5 RDW 14.2 Plt Count 258 MPV 8.6 Sodium 132 L Potassium 3.6 Chloride 99 Carbon Dioxide 26 Anion Gap 7 L BUN 10.1 Creatinine 1.0 Est GFR (CKD-EPI)AfAm 90.50 Est GFR (CKD-EPI)NonAf 78.08 Random Glucose 97 Calcium 8.6 Total Bilirubin 0.9 AST 79 H ALT 67 H Alkaline Phosphatase 76 Total Protein 6.5 Albumin 2.9 L Active Medications Generic Name Dose Route Start Last Admin Trade Name Freq PRN Reason Stop Dose Admin Enoxaparin Sodium 95 mg 02/11/19 19:10 02/12/19 09:07 Lovenox - SQ 95 mg BID MUKESH Administration Hydromorphone HCl 2 mg 02/12/19 09:18 Dilaudid - PO Q6H PRN PAIN LEVEL 6-10 Ceftriaxone Sodium 1 gm/ 50 mls @ 100 mls/hr 02/12/19 10:00 02/12/19 08:59 Dextrose IVPB 100 mls/hr DAILY MUKESH Administration Protocol CT abdomen: segmental areas of nonenhancement in the left kidney some which are wedge shaped ASSESSMENT/PLAN: Patient is a 68 y/o male with past medical history of psoriasis who presents for abdominal pain and testicular pain. infarct of left kidney sepsis Plan: likely emboli, f/u cardiology recommendations, telemetry monitoring, to r/o A.Fib f/u ECHO cont abx, tylenol f/u cultures Dispo: We will continue to follow the patient. Thank you for this consultative opportunity. Problem List - Problems (1) Psoriasis Code(s): L40.9 - PSORIASIS, UNSPECIFIED (2) LLQ pain Code(s): R10.32 - LEFT LOWER QUADRANT PAIN (3) Renal infarct Code(s): N28.0 - ISCHEMIA AND INFARCTION OF KIDNEY Visit type - Emergency Visit Emergency Visit: Yes ED Registration Date: 02/11/19 Care time: The patient presented to the Emergency Department on the above date and was hospitalized for further evaluation of their emergent condition. - New Patient This patient is new to me today: Yes Date on this admission: 02/12/19 - Critical Care Critical Care patient: No
[2019-02-12] MEDS ORDERED: PIPERACILLIN/TAZOB 3.375 GM 3.375 GM in DEXTROSE 5%-WATER - 50 ML IVPB SCH (18:00)
[2019-02-12] MEDS: ACETAMINOPHEN 325 MG TABLET (FP) PO PRN (21:06)
[2019-02-12] MEDS ORDERED: MELATONIN 5 MG TABLETS PO ONE (21:45)
--- NOTE | 2019-02-12 23:31 | PN ---
Teaching Attending Note Name of Resident: Regine Allred ATTENDING PHYSICIAN STATEMENT I saw and evaluated the patient. I reviewed the resident's note and discussed the case with the resident. I agree with the resident's findings and plan as documented. ASSESSMENT AND PLAN: 68 y/o patient with left upper quadrant pain. No fever/urinary frequenacy/ dysuria/hematuria. But now with fevers Imaging --left trenal infarct vs pyelonephritis But urine cx negative Brother is on xeralto with h/o ? provoked DVT Patient has h/o psoriasis Clinical scenario more suggestive of infarct On lovenox 95 mg SC bid Will check antiphospholipid panel Ruling out afib/endocarditis per cardiology
[2019-02-13] MEDS ORDERED: PIPERACILLIN/TAZOBACTAM 3.375 GM VIAL IVPB ONE ×3 (01:01→17:01)
[2019-02-13] MEDS ORDERED: DEXTROSE 5%-WATER - 50 ML IVPB ONE ×3 (01:02→17:01)
[2019-02-13] MEDS: PIPERACILLIN/TAZOB 3.375 GM 3.375 GM in DEXTROSE 5%-WATER - 50 ML IVPB SCH ×3 (01:25→17:33)
[2019-02-13 07:17] LABS: HEMOGLOBIN 12.9 GM/dL (11.7-16.9); MCHC 34.7 g/dl (32.0-35.9); MEAN CELL VOLUME 89.1 fl (80-96); MEAN PLT VOLUME 8.6 fl (7.5-11.1); PLATELET COUNT 252 K/MM3 (134-434); RBC 4.16 M/mm3 (4.00-5.60); RDW 13.7 % (11.9-15.9); WHITE BLOOD COUNT 16.5 K/mm3 (4.0-10.0)
[2019-02-13 07:33] LABS: ALBUMIN 2.6 g/dl (3.4-5.0); BLOOD UREA NITROGEN 12.9 mg/dL (7-18); CALCIUM 8.4 mg/dL (8.5-10.1); CREATININE 0.9 mg/dL (0.55-1.3); POTASSIUM 3.6 mmol/L (3.5-5.1); TOT PROT 6.3 g/dl (6.4-8.2)
[2019-02-13 07:46] LABS: INR 1.51 (0.83-1.09); PROTHROMBIN TIME (PATIENT) 17.9 SEC (9.7-13.0)
[2019-02-13 07:48] LABS: ACTIVATED PTT 29.7 SECONDS (25.2-36.5)
[2019-02-13] MEDS: ENOXAPARIN NA (PORCINE) 100 MG/1 ML DISP.SYRIN SQ SCH ×2 (10:50→22:27)
[2019-02-13] MEDS: SENNOSIDES/DOCUSATE COMBO (SENNA PLUS) TABLET (UD) PO SCH ×2 (10:54→22:27)
[2019-02-13 11:15] LABS: PROTEIN S FREE 96 % (57-157)
[2019-02-13] MEDS: POLYETHYLENE GLYCOL 3350 119 GM BTL PO SCH (12:45)
--- NOTE | 2019-02-13 13:15 | PN ---
Teaching Attending Note Name of Resident: Belle Reid ATTENDING PHYSICIAN STATEMENT I saw and evaluated the patient. I reviewed the resident's note and discussed the case with the resident. I agree with the resident's findings and plan as documented. SUBJECTIVE: L flank/abdominal pain improved. No dysuria/fever/chills. No hematuria OBJECTIVE: Tmax 101.6, Hemodynamically Stable Last Vital Signs Temp Pulse Resp BP Pulse Ox 98.6 F 86 20 141/78 93 L 02/13/19 10:00 02/13/19 10:00 02/13/19 10:00 02/13/19 10:00 02/13/19 09:00 Heart -S1, S2, RRR Lungs - clear to auscultation Abdomen - soft, mild left flank tenderness. No CVA tenderness. Bowel Sounds normal. Extremities - LE venous stasis skin changes, edema R> L Laboratory Results - last 24 hr 02/11/19 02/13/19 02/13/19 06:30 06:35 06:35 WBC 16.5 H RBC 4.16 Hgb 12.9 Hct 37.0 MCV 89.1 MCH 31.0 MCHC 34.7 RDW 13.7 Plt Count 252 MPV 8.6 PT with INR INR PTT (Actin FS) Free Protein S 96 Total Protein S 90 Sodium 135 L Potassium 3.6 Chloride 99 Carbon Dioxide 25 Anion Gap 10 BUN 12.9 Creatinine 0.9 Est GFR (CKD-EPI)AfAm 102.79 Est GFR (CKD-EPI)NonAf 88.69 Random Glucose 103 Calcium 8.4 L Total Bilirubin 1.0 AST 64 H ALT 64 H Alkaline Phosphatase 86 Total Protein 6.3 L Albumin 2.6 L 02/13/19 06:35 WBC RBC Hgb Hct MCV MCH MCHC RDW Plt Count MPV PT with INR 17.90 H INR 1.51 H PTT (Actin FS) 29.7 Free Protein S Total Protein S Sodium Potassium Chloride Carbon Dioxide Anion Gap BUN Creatinine Est GFR (CKD-EPI)AfAm Est GFR (CKD-EPI)NonAf Random Glucose Calcium Total Bilirubin AST ALT Alkaline Phosphatase Total Protein Albumin Current Medications Generic Name Dose Route Start Last Admin Trade Name Freq PRN Reason Stop Dose Admin Acetaminophen 650 mg 02/12/19 18:55 02/12/19 21:06 Tylenol - PO 650 mg Q6H PRN Administration Fever Or Pain Enoxaparin Sodium 95 mg 02/12/19 22:00 02/13/19 10:50 Lovenox - SQ 95 mg BID MUKESH Administration Hydromorphone HCl 2 mg 02/12/19 21:27 Dilaudid - PO Q6H PRN PAIN LEVEL 6-10 Piperacillin Sod/Tazobactam 50 mls @ 100 mls/hr 02/12/19 18:00 Sod 3.375 gm/ Dextrose IVPB Q8H-IV MUKESH Protocol Polyethylene Glycol 17 gm 02/13/19 11:45 02/13/19 12:45 Miralax (For Daily Use) - PO 17 grams DAILY MUKESH Administration Senna/Docusate Sodium 1 tablet 02/13/19 10:00 02/13/19 10:54 Pericolace - PO 1 tablet BID MUKESH Administration ASSESSMENT/PLAN: 68 year old male with no significant PMH presented with L sided abdominal pain radiating to groin/testicles. No fever/chills/nausea/vomiting. US Testicles reported normal (done at urgent care) CT shows segmental areas of non-enhancement in the L-kidney some of which is wedge shaped suggesting nephritis or pyelonephritis or ischemic insult. 1. Acute Renal Infarct ?embolic Confirmed on CTA Vascular Surgery consulted. Started on therapeutic Lovenox SQ. Echo with bubble study pending Duplex LEs - neg for DVT Cardiology consulted - recommend telemonitoring for possible Afib given probable embolic phenomenon. Hematology consulted for Thrombophilia and recommendation for oral anticoagulant , currently on Lovenox. 2. Fever, etiology unclear ?infectious ?related to thrombosis Fever overnight Blood and Urine Cx negative Ceftriaxone changed to Zosyn. ID consulted for further evaluation 3. Elevated Transaminases, etiology unclear, likely sec to fatty liver. CT imaging shows hepatic cyst and mild fatty infiltration. Hepatitis panel pending. GI follow up as out-patient. DVT Px - On Lovenox SQ
--- NOTE | 2019-02-13 13:36 | PN ---
Progress Note, Physician Chief Complaint: Abdominal pain. Renal infarct History of Present Illness: The patient is a 68-year-old man with no significant past medical history, not followed closely by a physician, admitted with left lower quadrant abdominal pain, found to have an acute renal infarct on his CTA. The patient is septic with urinary tract infection and pyelonephritis. X At baseline he walks without any important limitations nor symptoms. Denied history of coronary artery disease and angina. No palpitations. No shortness of breath. The patient is current comfortable but admits to mild abdominal discomfort. The patient is in sinus rhythm. 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 No arrhythmias noted at this point. No evidence of paroxysmal atrial fibrillation or flutter. - Current Medication List Current Medications: Active Medications Acetaminophen (Tylenol -) 650 mg PO Q6H PRN PRN Reason: Fever Or Pain Last Admin: 02/12/19 21:06 Dose: 650 mg Enoxaparin Sodium (Lovenox -) 95 mg SQ BID [facility] Last Admin: 02/13/19 10:50 Dose: 95 mg Hydromorphone HCl (Dilaudid -) 2 mg PO Q6H PRN PRN Reason: PAIN LEVEL 6-10 Piperacillin Sod/Tazobactam (Sod 3.375 gm/ Dextrose) 50 mls @ 100 mls/hr IVPB Q8H-IV MUKESH; Protocol Polyethylene Glycol (Miralax (For Daily Use) -) 17 gm PO DAILY [facility] Last Admin: 02/13/19 12:45 Dose: 17 grams Senna/Docusate Sodium (Pericolace -) 1 tablet PO BID [facility] Last Admin: 02/13/19 10:54 Dose: 1 tablet - Objective Vital Signs: Vital Signs Temperature 98.6 F 02/13/19 10:00 Pulse Rate 86 02/13/19 10:00 Respiratory Rate 20 02/13/19 10:00 Blood Pressure 141/78 02/13/19 10:00 O2 Sat by Pulse Oximetry (%) 93 L 02/13/19 09:00 Constitutional: Yes: Well Nourished, No Distress, Calm Eyes: Yes: WNL, Conjunctiva Clear, EOM Intact HENT: Yes: WNL, Atraumatic, Normocephalic Neck: Yes: WNL, Supple, Trachea Midline Cardiovascular: Yes: WNL, Regular Rate and Rhythm, S1, S2 Respiratory: Yes: WNL, Regular, CTA Bilaterally Gastrointestinal: Yes: Normal Bowel Sounds, Soft, Tenderness ...Rectal Exam: Yes: Deferred Genitourinary: Yes: WNL Extremities: Yes: WNL Edema: No Peripheral Pulses WNL: Yes Integumentary: Yes: WNL Neurological: Yes: WNL, Alert, Oriented ...Motor Strength: WNL Labs: CBC, BMP 02/13/19 06:35 02/13/19 06:35 INR, PTT INR 1.51 (0.83-1.09) H 02/13/19 06:35 Assessment/Plan The patient is a 68-year-old man with no significant past medical history, not followed closely by a physician, admitted with left lower quadrant abdominal pain, found to have an acute renal infarct on his CTA. The patient is septic with urinary tract infection and pyelonephritis. X At baseline he walks without any important limitations nor symptoms. Denied history of coronary artery disease and angina. No palpitations. No shortness of breath. The patient is current comfortable but admits to mild abdominal discomfort. The patient is in sinus rhythm. 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 No arrhythmias noted at this point. No evidence of paroxysmal atrial fibrillation or flutter. The patient has been maintaining sinus rhythm. No arrhythmias documented on telemetry at this point. Echocardiogram was not done. Continue monitoring for now. We'll follow echo results. The patient is stable from the cardiac standpoint.
--- NOTE | 2019-02-13 13:36 | PN ---
Physical Exam: SUBJECTIVE: Patient seen this morning and without complaints. Last fever was 6 pm yesterday. OBJECTIVE: Vital Signs Temperature 98.6 F 02/13/19 10:00 Pulse Rate 86 02/13/19 10:00 Respiratory Rate 20 02/13/19 10:00 Blood Pressure 141/78 02/13/19 10:00 O2 Sat by Pulse Oximetry (%) 93 L 02/13/19 09:00 GENERAL: The patient is awake, alert, and fully oriented, in no acute distress. EYES: PERRL, extraocular movements intact LUNGS: Breath sounds equal, clear to auscultation bilaterally, no wheezes, no crackles, no accessory muscle use. HEART: Regular rate and rhythm, S1, S2 without murmur, rub or gallop. ABDOMEN: left sided distension, soft mid epigastric, no tenderness : no pain on palpation of left testicle, no erythema, no swelling EXTREMITIES: 2+ pulses, warm, well-perfused, no edema. SKIN: Warm, dry, normal turgor, no rashes or lesions noted CBC, BMP 02/13/19 06:35 02/13/19 06:35 Active Medications Acetaminophen (Tylenol -) 650 mg PO Q6H PRN PRN Reason: Fever Or Pain Last Admin: 02/12/19 21:06 Dose: 650 mg Enoxaparin Sodium (Lovenox -) 95 mg SQ BID [facility] Last Admin: 02/13/19 10:50 Dose: 95 mg Hydromorphone HCl (Dilaudid -) 2 mg PO Q6H PRN PRN Reason: PAIN LEVEL 6-10 Piperacillin Sod/Tazobactam (Sod 3.375 gm/ Dextrose) 50 mls @ 100 mls/hr IVPB Q8H-IV MUKESH; Protocol Polyethylene Glycol (Miralax (For Daily Use) -) 17 gm PO DAILY [facility] Last Admin: 02/13/19 12:45 Dose: 17 grams Senna/Docusate Sodium (Pericolace -) 1 tablet PO BID [facility] Last Admin: 02/13/19 10:54 Dose: 1 tablet ASSESSMENT/PLAN: Patient is a 68 y/o male with no past medical history who presents for abdominal pain and testicular pain. #infarct of left kidney - vascular infarction, cannot r/o pyelo - CT: segmental areas of nonenhancement in the left kidney some which are wedge shaped, few diverticula in sigmoid colon without eveidence of acute diverticulitis pain, enlarged prostate gland - ABD CTA; widely patent main left renal artery, large left renal hypoperfusion questionable perfusion in distal segmental and interlobar arteries - tylenol as needed for pain - loveno 95 bid - hypercoaguable workup, follow up labs Protein C and S normal - echo: left ventricular size, thickness and function, RV normal, no interarterial shunt - lower extremity duplex: negative for clots #sepsis, 2/2 to UTI vs Pyelonpehritis - leukocytosis resolving, febrile overnight - cxs and ucx negative, repeat blood cx - sqitched to Zosyn, f/u ID - CXR: clear #DVT ppx - patient on lovenox FEN - regular diet Dispo: continue to monitor on med surg Visit type - Emergency Visit Emergency Visit: No - New Patient This patient is new to me today: No - Critical Care Critical Care patient: No
[2019-02-13] MEDS: ACETAMINOPHEN 325 MG TABLET (FP) PO PRN (14:44)
--- NOTE | 2019-02-13 14:46 | PN ---
Progress Note (short form) - Note Progress Note: ID CONSULT DICTATED RENAL INFARCT ? ETIO ? SEPTIC EMBOLI FEVER / LEUKOCYTOSIS INFECTION V. INFARCTED TISSUE REPEAT BC PENDING CHECK ECHO R/O VEGETATIONS EMPIRIC ZOSYN
--- NOTE | 2019-02-13 15:35 | PN ---
Physical Exam: SUBJECTIVE: Patient seen and examined, still complaining of fever, chills but no more abdominal pain. OBJECTIVE: Vital Signs Period Temp Pulse Resp BP Sys/Krishnan Pulse Ox Last 24 Hr 98.4 F-101.6 F 86-97 20-20 118-147/55-90 93-95 GENERAL: The patient is awake, alert, and fully oriented, in no acute distress. HEAD: Normal with no signs of trauma. EYES: Extraocular movements intact, sclera anicteric, conjunctiva clear. ENT: Moist mucous membranes. NECK: Supple. LUNGS: Breath sounds equal, clear to auscultation bilaterally HEART: Regular rate and rhythm, S1, S2 without murmur, rub or gallop. ABDOMEN: Obese, soft, nontender, distended, normoactive bowel sounds. EXTREMITIES: no edema. NEUROLOGICAL: Normal speech, gait not observed. PSYCH: Normal mood, normal affect. SKIN: Warm, dry, normal turgor, rash in abdomen, elbows, LE. Laboratory Results - last 24 hr 02/11/19 02/13/19 02/13/19 06:30 06:35 06:35 WBC 16.5 H RBC 4.16 Hgb 12.9 Hct 37.0 MCV 89.1 MCH 31.0 MCHC 34.7 RDW 13.7 Plt Count 252 MPV 8.6 PT with INR INR PTT (Actin FS) Free Protein S 96 Total Protein S 90 Sodium 135 L Potassium 3.6 Chloride 99 Carbon Dioxide 25 Anion Gap 10 BUN 12.9 Creatinine 0.9 Est GFR (CKD-EPI)AfAm 102.79 Est GFR (CKD-EPI)NonAf 88.69 Random Glucose 103 Calcium 8.4 L Total Bilirubin 1.0 AST 64 H ALT 64 H Alkaline Phosphatase 86 Total Protein 6.3 L Albumin 2.6 L 02/13/19 06:35 WBC RBC Hgb Hct MCV MCH MCHC RDW Plt Count MPV PT with INR 17.90 H INR 1.51 H PTT (Actin FS) 29.7 Free Protein S Total Protein S Sodium Potassium Chloride Carbon Dioxide Anion Gap BUN Creatinine Est GFR (CKD-EPI)AfAm Est GFR (CKD-EPI)NonAf Random Glucose Calcium Total Bilirubin AST ALT Alkaline Phosphatase Total Protein Albumin Active Medications Generic Name Dose Route Start Last Admin Trade Name Freq PRN Reason Stop Dose Admin Acetaminophen 650 mg 02/12/19 18:55 02/13/19 14:44 Tylenol - PO 650 mg Q6H PRN Administration Fever Or Pain Enoxaparin Sodium 95 mg 02/12/19 22:00 02/13/19 10:50 Lovenox - SQ 95 mg BID MUKESH Administration Piperacillin Sod/Tazobactam 50 mls @ 100 mls/hr 02/13/19 18:00 Sod 3.375 gm/ Dextrose IVPB Q8H-IV MUKESH Protocol Polyethylene Glycol 17 gm 02/13/19 11:45 02/13/19 12:45 Miralax (For Daily Use) - PO 17 grams DAILY MUKESH Administration Senna/Docusate Sodium 1 tablet 02/13/19 10:00 02/13/19 10:54 Pericolace - PO 1 tablet BID MUKESH Administration ASSESSMENT/PLAN: CT abdomen: segmental areas of nonenhancement in the left kidney some which are wedge shaped ASSESSMENT/PLAN: Patient is a 68 y/o male with past medical history of psoriasis who presents for abdominal pain and testicular pain. infarct of left kidney sepsis Plan: thrombiphilia workup pending cont abx, tylenol f/u cultures Dispo: We will continue to follow the patient. Thank you for this consultative opportunity. Problem List - Problems (1) Psoriasis Code(s): L40.9 - PSORIASIS, UNSPECIFIED (2) LLQ pain Code(s): R10.32 - LEFT LOWER QUADRANT PAIN (3) Renal infarct Code(s): N28.0 - ISCHEMIA AND INFARCTION OF KIDNEY Visit type - Emergency Visit Emergency Visit: Yes ED Registration Date: 02/11/19 Care time: The patient presented to the Emergency Department on the above date and was hospitalized for further evaluation of their emergent condition. - New Patient This patient is new to me today: No - Critical Care Critical Care patient: No - Discharge Referral Referred to [facility] Med P.C.: No
--- NOTE | 2019-02-13 16:02 | CONS ---
DATE OF CONSULTATION: DATE OF DICTATION: 02/13/2019 The patient is a 68-year-old male evaluated for fever. The patient was admitted to the hospital on February 11, 2019, with onset of left lower quadrant abdominal pain and left testicular pain. He presented to the emergency room where a CAT scan was performed and showed possible pyelonephritis of the left kidney. A CT angiogram was performed and showed what appears to be parenchymal infarct of the left kidney. He was empirically treated with ceftriaxone for possible pyelonephritis. His course has now been complicated by fever. At this point he is comfortable. He denies any left lower quadrant abdominal pain or testicular pain. He has no urinary tract symptoms. He denies any dysuria or hematuria. He denies fever or chills prior to his hospital admission. Patient states he has been generally in good health and has not been under the care of a physician. PAST MEDICAL HISTORY: Negative. ALLERGIES: No known allergies. MEDICATIONS: Include Tylenol, Lovenox, Zosyn. SOCIAL HISTORY: He is retired from the [employer]. Nonsmoker, nondrinker. Denies risk factors for HIV, although status not documented. REVIEW OF SYSTEMS: Neurologic: No loss of consciousness, seizure activity, focal weakness. Cardiac: Negative chest pain or palpitations. Respiratory: Negative cough or sputum production. Gastrointestinal: Negative vomiting or diarrhea. Genitourinary: As per HPI. LABORATORY DATA: White count 16.5, hematocrit 37.0, platelet count 252, creatinine 0.9, total bilirubin 1.0, alkaline phosphatase 86, AST 64, ALT 64. Urine: Leukocyte esterase negative. Blood cultures and urine cultures negative. Chest x-ray negative for acute infiltrate. CT angiogram: Bilateral atelectatic changes of the lung. Multiple large wedges seen in left kidney suggestive of parenchymal infarct. PHYSICAL EXAMINATION: General: He is awake and alert, supine in bed. Vital Signs: Temperature 98.6, blood pressure 141/78, pulse 86, regular. Respiration 20 per minute. HEENT: Sclerae are anicteric. No conjunctival hemorrhages. Cardiovascular: Heart sounds S1, S2. No murmur. Lungs: Clear. Abdomen: Soft. No left lower quadrant tenderness to palpation. Genitourinary: Genital exam normal. No scrotal swelling, erythema, or tenderness. Extremities: Negative for edema. There are some psoriatic lesions noted on the lower extremities and on the abdomen. IMPRESSION: 1. Renal infarct, unclear etiology, rule out septic emboli. 2. Fever, leukocytosis, infection versus infarcted tissue. Etiology of renal infarct not clear. In light of fever and leukocytosis, would rule out septic emboli as potential source. Repeat blood cultures are pending. Check echocardiogram, rule out valvular vegetations. Continue empiric Zosyn pending cultures. Hematology evaluation. Consider hypercoagulable state workup. Thank you for the kind referral. MILES PIERCE M.D. [id number]
[2019-02-13] MEDS ORDERED: ZOLPIDEM TARTRATE 5 MG TABLET PO ONE (21:41)
--- NOTE | 2019-02-13 23:34 | PN ---
Progress Note (short form) - Note Progress Note: Paient seen and examined Feels better c/o insomnia---requesting leta THOMAS Cor: RSR, No murmurs, No gallops Lungs: Clear to P&A Abd: Soft, Normal bowel sounds, No organomegaly Ext:No significant edema Abnormal Lab Results 02/14/19 02/14/19 07:23 07:23 WBC 12.4 H Calcium 8.0 L Total Bilirubin 1.1 H AST 54 H ALT 66 H Albumin 2.6 L Active Medications Acetaminophen (Tylenol -) 650 mg PO Q6H PRN PRN Reason: Fever Or Pain Last Admin: 02/13/19 14:44 Dose: 650 mg Enoxaparin Sodium (Lovenox -) 95 mg SQ BID [facility] Last Admin: 02/14/19 08:59 Dose: 95 mg Piperacillin Sod/Tazobactam (Sod 3.375 gm/ Dextrose) 50 mls @ 100 mls/hr IVPB Q8H-IV MUKESH; Protocol Last Admin: 02/14/19 08:59 Dose: 100 mls/hr Polyethylene Glycol (Miralax (For Daily Use) -) 17 gm PO DAILY [facility] Last Admin: 02/14/19 09:00 Dose: Not Given Senna/Docusate Sodium (Pericolace -) 1 tablet PO BID [facility] Last Admin: 02/14/19 09:00 Dose: Not Given A/P 68 y/o patient with left upper quadrant pain. No fever/urinary frequenacy/ dysuria/hematuria. But now with fevers Imaging --left trenal infarct vs pyelonephritis But urine cx negative Brother is on xeralto with h/o ? provoked DVT Patient has h/o psoriasis Clinical scenario more suggestive of infarct On lovenox 95 mg SC bid Will check antiphospholipid panel Ruling out afib/endocarditis per cardiology will follow
[2019-02-14] MEDS ORDERED: DEXTROSE 5%-WATER - 50 ML IVPB ONE ×2 (01:58→08:15)
[2019-02-14] MEDS ORDERED: PIPERACILLIN/TAZOBACTAM 3.375 GM VIAL IVPB ONE ×2 (01:58→08:15)
[2019-02-14] MEDS: PIPERACILLIN/TAZOB 3.375 GM 3.375 GM in DEXTROSE 5%-WATER - 50 ML IVPB SCH ×2 (02:16→08:59)
[2019-02-14 05:11] LABS: HEP.C VIRUS AB <0.1 s/co ratio (0.0-0.9)
[2019-02-14 08:26] LABS: HEMATOCRIT 36.9 % (35.4-49); HEMOGLOBIN 12.8 GM/dL (11.7-16.9); MCH 31.2 pg (25.7-33.7); MCHC 34.6 g/dl (32.0-35.9); MEAN CELL VOLUME 90.2 fl (80-96); MEAN PLT VOLUME 8.9 fl (7.5-11.1); PLATELET COUNT 256 K/MM3 (134-434); RBC 4.09 M/mm3 (4.00-5.60); RDW 13.9 % (11.9-15.9); WHITE BLOOD COUNT 12.4 K/mm3 (4.0-10.0)
[2019-02-14] MEDS: ENOXAPARIN NA (PORCINE) 100 MG/1 ML DISP.SYRIN SQ SCH ×2 (08:59→21:55)
[2019-02-14] MEDS: POLYETHYLENE GLYCOL 3350 119 GM BTL PO SCH (09:00)
[2019-02-14] MEDS: SENNOSIDES/DOCUSATE COMBO (SENNA PLUS) TABLET (UD) PO SCH (09:00)
[2019-02-14 09:01] LABS: ALBUMIN 2.6 g/dl (3.4-5.0); BILIRUBIN,TOTAL 1.1 mg/dL (0.2-1); BLOOD UREA NITROGEN 14.9 mg/dL (7-18); CREATININE 0.9 mg/dL (0.55-1.3); POTASSIUM 3.5 mmol/L (3.5-5.1); TOT PROT 6.4 g/dl (6.4-8.2)
--- NOTE | 2019-02-14 12:42 | PN ---
Teaching Attending Note Name of Resident: eBlle Reid ATTENDING PHYSICIAN STATEMENT I saw and evaluated the patient. I reviewed the resident's note and discussed the case with the resident. I agree with the resident's findings and plan as documented. SUBJECTIVE: Patient has no complaints and wants to go home. OBJECTIVE: Vital Signs Period Temp Pulse Resp BP Sys/Krishnan Pulse Ox Last 24 Hr 98.2 F-100.4 F 80-90 16-20 115-149/55-90 95-96 HEART: S1S2, RRR LUNGS: Clear ABDOMEN: Soft, non-tender, non-distended, normal BS EXTREMITIES: No edema Laboratory Results - last 24 hr 02/12/19 02/14/19 02/14/19 18:00 07:23 07:23 WBC 12.4 H RBC 4.09 Hgb 12.8 Hct 36.9 MCV 90.2 MCH 31.2 MCHC 34.6 RDW 13.9 Plt Count 256 MPV 8.9 Sodium 136 Potassium 3.5 Chloride 101 Carbon Dioxide 25 Anion Gap 10 BUN 14.9 Creatinine 0.9 Est GFR (CKD-EPI)AfAm 102.79 Est GFR (CKD-EPI)NonAf 88.69 Random Glucose 93 Calcium 8.0 L Total Bilirubin 1.1 H AST 54 H ALT 66 H Alkaline Phosphatase 107 Total Protein 6.4 Albumin 2.6 L Hepatitis A IgM Ab Negative Hep Bs Antigen Negative Hep B Core IgM Ab Negative Hepatitis C Antibody <0.1 Current Medications Generic Name Dose Route Start Last Admin Trade Name Freq PRN Reason Stop Dose Admin Acetaminophen 650 mg 02/12/19 18:55 02/13/19 14:44 Tylenol - PO 650 mg Q6H PRN Administration Fever Or Pain Enoxaparin Sodium 95 mg 02/12/19 22:00 02/14/19 08:59 Lovenox - SQ 95 mg BID MUKESH Administration Piperacillin Sod/Tazobactam 50 mls @ 100 mls/hr 02/13/19 18:00 02/14/19 08:59 Sod 3.375 gm/ Dextrose IVPB 100 mls/hr Q8H-IV MUKESH Administration Protocol Polyethylene Glycol 17 gm 02/13/19 11:45 02/14/19 09:00 Miralax (For Daily Use) - PO Not Given DAILY MUKESH Senna/Docusate Sodium 1 tablet 02/13/19 10:02/14/19 09:00 Pericolace - PO Not Given BID [facility] ASSESSMENT AND PLAN: This is a 68 year old man with no significant medical history who presented to the ED with left-sided abdominal pain radiating to groin/testicles. 1. Left renal infarct - Presumed embolic - On Lovenox - No evidence of atrial fib, infection - Echo shows normal LV, normal RV, mild AR, no interatrial shunt - Thrombophilia workup in progress - Continue telemetry monitoring 2. SIRS with fever, leukocytosis - Likely secondary to renal infarct - No obvious source of infection - Temp, WBC improving - On Zosyn empirically 3. Hepatic transaminitis - Possibly secondary to fatty liver - Hep A IgM, HBsAg, HBcAb IgM, HCV Ab negative
--- NOTE | 2019-02-14 14:56 | PN ---
Progress Note, Physician Chief Complaint: Cardiology FU Telem 10 beats of WCT regular. No Afib. Abd pain and nausea resolved. History of Present Illness: 68 M admitted with abdominal an testicular pain with nausea and fever and noted to have renal infarcts. Echocardiogram showed Normal LV function and mild AR. - Current Medication List Current Medications: Active Medications Acetaminophen (Tylenol -) 650 mg PO Q6H PRN PRN Reason: Fever Or Pain Last Admin: 02/13/19 14:44 Dose: 650 mg Enoxaparin Sodium (Lovenox -) 95 mg SQ BID [facility] Last Admin: 02/14/19 08:59 Dose: 95 mg Piperacillin Sod/Tazobactam (Sod 3.375 gm/ Dextrose) 50 mls @ 100 mls/hr IVPB Q8H-IV MUKESH; Protocol Last Admin: 02/14/19 08:59 Dose: 100 mls/hr - Objective Vital Signs: Vital Signs Temperature 98.4 F 02/14/19 08:48 Pulse Rate 90 02/14/19 08:48 Respiratory Rate 16 02/14/19 08:50 Blood Pressure 115/55 L 02/14/19 08:48 O2 Sat by Pulse Oximetry (%) 95 02/14/19 08:50 Constitutional: Yes: Well Nourished, No Distress Eyes: Yes: Conjunctiva Clear, EOM Intact HENT: Yes: Atraumatic, Normocephalic Neck: Yes: Supple, Trachea Midline Cardiovascular: Yes: Regular Rate and Rhythm. No: JVD Respiratory: Yes: Regular, CTA Bilaterally Gastrointestinal: Yes: Normal Bowel Sounds, Soft Edema: No Labs: CBC, BMP 02/14/19 07:23 02/14/19 07:23 INR, PTT INR 1.51 (0.83-1.09) H 02/13/19 06:35 Problem List - Problems (1) Renal infarct Code(s): N28.0 - ISCHEMIA AND INFARCTION OF KIDNEY Assessment/Plan No atrial fibrillation or flutter noted on telemetry. Pt has renal infarcts and fever with negative UA. blood and urine cultures so far negative. Embolic source is suspected. Though would need documentation of a AF prior to placing on group home AC. Discontinue systemic AC. Echocardiogram did not show significant valvular pathology although this does not exclude IE. Would monitor pt off abx. and repeating blood cultures off them Continue telemetry
--- NOTE | 2019-02-14 17:57 | PN ---
Physical Exam: SUBJECTIVE: Patient seen this morning and has no complaints. Patient had diarrhea bowel movements. Afebrile. OBJECTIVE: Vital Signs Temperature 98.2 F 02/14/19 17:00 Pulse Rate 89 02/14/19 17:00 Respiratory Rate 20 02/14/19 17:00 Blood Pressure 142/85 02/14/19 17:00 O2 Sat by Pulse Oximetry (%) 95 02/14/19 08:50 GENERAL: The patient is awake, alert, and fully oriented, in no acute distress. EYES: PERRL, extraocular movements intact LUNGS: Breath sounds equal, clear to auscultation bilaterally, no wheezes, no crackles, no accessory muscle use. HEART: Regular rate and rhythm, S1, S2 without murmur, rub or gallop. ABDOMEN: left sided distension, soft mid epigastric, no tenderness : no pain on palpation of left testicle, no erythema, no swelling EXTREMITIES: 2+ pulses, warm, well-perfused, no edema. 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, cannot r/o pyelo - CT: segmental areas of nonenhancement in the left kidney some which are wedge shaped, few diverticula in sigmoid colon without eveidence of acute diverticulitis pain, enlarged prostate gland - ABD CTA; widely patent main left renal artery, large left renal hypoperfusion questionable perfusion in distal segmental and interlobar arteries - tylenol as needed for pain - lovenox 95 bid - hypercoaguable workup, follow up labs Protein C and S normal - echo: left ventricular size, thickness and function, RV normal, no interarterial shunt - lower extremity duplex: negative for clots - discussed with heme/onc patient will go home on Eliquis 5 mg daily and patient agreeable #fever - afebrile since 2pm 02/13 - will monitor off abx - cxs and ucx negative, repeat blood cx - CXR: clear #DVT ppx - patient on lovenox , to be DC on Eliquis FEN - regular diet - ambien to sleep at night Dispo: continue to monitor on med surg, if patient afebrile then can go home tomorrow, will f/u with clinic and heme onc Visit type - Emergency Visit Emergency Visit: No - New Patient This patient is new to me today: No - Critical Care Critical Care patient: No
[2019-02-14] MEDS ORDERED: ZOLPIDEM TARTRATE 5 MG TABLET PO PRN (22:00)
[2019-02-15 07:31] LABS: HEMATOCRIT 36.2 % (35.4-49); HEMOGLOBIN 12.7 GM/dL (11.7-16.9); MCH 31.6 pg (25.7-33.7); MCHC 35.2 g/dl (32.0-35.9); MEAN CELL VOLUME 89.8 fl (80-96); MEAN PLT VOLUME 8.7 fl (7.5-11.1); PLATELET COUNT 250 K/MM3 (134-434); RBC 4.03 M/mm3 (4.00-5.60); RDW 14.4 % (11.9-15.9); WHITE BLOOD COUNT 9.4 K/mm3 (4.0-10.0)
[2019-02-15 07:53] LABS: ALBUMIN 2.5 g/dl (3.4-5.0); BILIRUBIN,TOTAL 0.6 mg/dL (0.2-1); CALCIUM 8.1 mg/dL (8.5-10.1); CREATININE 0.9 mg/dL (0.55-1.3); POTASSIUM 3.8 mmol/L (3.5-5.1); TOT PROT 6.2 g/dl (6.4-8.2)
[2019-02-15] MEDS: ENOXAPARIN NA (PORCINE) 100 MG/1 ML DISP.SYRIN SQ SCH (09:44)
[2019-02-15 10:43] VITALS: BP 145/75; PULSE 78; TEMP 98.9
--- NOTE | 2019-02-15 13:17 | DS ---
Physical Examination Vital Signs: Vital Signs Temperature 98.9 F 02/15/19 09:42 Pulse Rate 78 02/15/19 09:42 Respiratory Rate 18 02/15/19 09:42 Blood Pressure 145/75 02/15/19 09:42 O2 Sat by Pulse Oximetry (%) 98 02/15/19 09:00 Findings/Remarks: Feeling well, no complaints, ready to go home Constitutional: Yes: Well Nourished, No Distress, Calm Eyes: Yes: WNL, Conjunctiva Clear, EOM Intact HENT: Yes: WNL, Atraumatic, Normocephalic Neck: Yes: WNL, Supple, Trachea Midline Cardiovascular: Yes: WNL, Regular Rate and Rhythm Respiratory: Yes: WNL, Regular, CTA Bilaterally Gastrointestinal: Yes: WNL, Normal Bowel Sounds, Soft Musculoskeletal: Yes: WNL Extremities: Yes: WNL Edema: No Labs: CBC, BMP 02/15/19 06:44 02/15/19 06:44 Discharge Summary Reason For Visit: RENAL INFARCTION/L LOWER QUADRANT PAIN Current Active Problems LLQ pain (Acute) Psoriasis (Acute) Renal infarct (Acute) Hospital Course: 68 y/o male with no past medical history who is admitted for left vascular in the left kidney 1) Left kidney infarct - vascular infarction, etiology unclear, no evidence of afib on tele - CT: segmental areas of nonenhancement in the left kidney some which are wedge shaped, few diverticula in sigmoid colon without evidence of acute diverticulitis pain, enlarged prostate gland - ABD CTA; widely patent main left renal artery, large left renal hypoperfusion questionable perfusion in distal segmental and interlobar arteries - tylenol as needed for pain - hypercoaguable workup, follow up labs Protein C and S normal, will follow with heme/onc and medical clinic - echo: left ventricular size, thickness and function, RV normal, no interarterial shunt - lower extremity duplex: negative for clots - discussed with heme/onc patient will go home on Eliquis 5 mg daily and patient agreeable 2) Fever - afebrile for over 48 hours, off abx - cxs and ucx negative, repeat blood cx negative - CXR: clear Condition: Improved - Instructions Diet, Activity, Other Instructions: You were admitted to the hospital for pain in your abdomen. While you were here we did imaging that showed you had an infarct in your left kidney. This means that blood stopped going to part of your kidney for a certain amount of time. This was due to a clot. At this time you do not need to stay in the hospital any longer. To treat the clot you will now take: Eliquis 5mg by mouth once a day It will be important for you to follow up with the funeral driver, Dr. Stovall, in one week. Please also make an appointment to follow up with your primary care physician, if you do not have one you can follow up at our clinic. the referral has been provided with your discharge papers. Please return to the Emergency Department if you have any nausea, vomiting, bleeding, dizziness, headache, chest pain, or shortness of breath. [place]: [facility] [place] [facility] [place] [facility] [place] Disposition: HOME - Home Medications Comprehensive Discharge Medication List: Ambulatory Orders Apixaban [Eliquis] 5 mg PO DAILY #30 tablet 02/14/19
--- NOTE | 2019-02-15 13:52 | PN ---
Progress Note, Physician Chief Complaint: Cardiology FU Telem NSR 3 beats NSVT No Afib. Abd pain and nausea resolved. History of Present Illness: 68 M admitted with abdominal an testicular pain with nausea and fever and noted to have renal infarcts. Echocardiogram showed Normal LV function and mild AR. - Current Medication List Current Medications: Active Medications Acetaminophen (Tylenol -) 650 mg PO Q6H PRN PRN Reason: Fever Or Pain Last Admin: 02/13/19 14:44 Dose: 650 mg Enoxaparin Sodium (Lovenox -) 95 mg SQ BID MUKESH Last Admin: 02/15/19 09:44 Dose: 95 mg Zolpidem Tartrate (Ambien -) 5 mg PO HS PRN PRN Reason: INSOMNIA Stop: 02/15/19 21:59 Last Admin: 02/14/19 22:00 Dose: 5 mg - Objective Vital Signs: Vital Signs Temperature 98.9 F 02/15/19 09:42 Pulse Rate 78 02/15/19 09:42 Respiratory Rate 18 02/15/19 09:42 Blood Pressure 145/75 02/15/19 09:42 O2 Sat by Pulse Oximetry (%) 98 02/15/19 09:00 Constitutional: Yes: Well Nourished, No Distress Eyes: Yes: Conjunctiva Clear HENT: Yes: Atraumatic, Normocephalic Neck: Yes: Supple, Trachea Midline Cardiovascular: Yes: Regular Rate and Rhythm Respiratory: Yes: Regular, CTA Bilaterally Gastrointestinal: Yes: Normal Bowel Sounds Edema: No Labs: CBC, BMP 02/15/19 06:44 02/15/19 06:44 INR, PTT INR 1.51 (0.83-1.09) H 02/13/19 06:35 Problem List - Problems (1) Renal infarct Code(s): N28.0 - ISCHEMIA AND INFARCTION OF KIDNEY Assessment/Plan No atrial fibrillation or flutter noted on telemetry. Embolic source is suspected. Echocardiogram did not show significant valvular pathology although this does not exclude IE. Out patient event monitor and cardiology follow up should be arranged. Will see as needed.
--- NOTE | 2019-02-16 08:32 | ECHO ---
Name: JENNA CUNNINGHAM Exam:Adult Echocardiogram Study Date: 02/12/2019 01:45 PM Age: 68 yrs Reason For Study: RENAL INFARCT?EMBOLI WITH BUBBLE STUDY Height: 72 in Weight: 214 lb BSA: 2.2 m2 MMode/2D Measurements & Calculations IVSd: 1.1 cm Ao root diam: 4.1 cm LVIDd: 5.5 cm LA dimension: 3.8 cm LVIDs: 3.5 cm LVPWd: 1.1 cm EDV(Teich): 146.7 ml LVOT diam: 2.3 cm ESV(Teich): 51.9 ml Doppler Measurements & Calculations MV E max eric: 74.5 cm/sec Ao V2 max: 171.6 cm/sec MV A max eric: 117.0 cm/sec Ao max P.8 mmHg MV E/A: 0.64 Ao V2 mean: 120.4 cm/sec MV dec time: 0.19 sec Ao mean P.7 mmHg Ao V2 VTI: 27.6 cm LOIDA(I,D): 2.7 cm2 LOIDA(V,D): 2.6 cm2 LV V1 max P.6 mmHg SV(LVOT): 74.1 ml LV V1 mean P.1 mmHg LV V1 max: 107.6 cm/sec LV V1 mean: 66.2 cm/sec LV V1 VTI: 18.2 cm TR max eric: 229.3 cm/sec Med Peak E' Eric: 9.7 cm/sec TR max P.0 mmHg Med E/e': 7.7 Lat Peak E' Eric: 10.4 cm/sec Lat E/e': 7.2 Procedure A complete two-dimensional transthoracic echocardiogram was performed (2D, M-mode, Doppler and color flow Doppler). A saline contrast injection was performed to assess for cardiac shunting. Left Ventricle The left ventricular size, thickness and function are normal. The left ventricular ejection fraction is normal. Ejection Fraction = 60-65%. The left ventricular wall motion is normal. Right Ventricle The right ventricle is normal in size and function. Atria Normal left and right atrial size and function. Injection of contrast documented no interatrial shunt . Mitral Valve There is no mitral regurgitation noted. Tricuspid Valve No tricuspid regurgitation. There was insufficient TR detected to calculate RV systolic pressure. Aortic Valve The aortic valve is trileaflet. No hemodynamically significant valvular aortic stenosis. Mild aortic regurgitation. Pulmonic Valve There is no pulmonic valvular regurgitation. Great Vessels Mild aortic root dilatation. Pericardium/Pleura There is no pericardial effusion. Interpretation Summary The left ventricular size, thickness and function are normal The right ventricle is normal in size and function. Mild aortic regurgitation. Mild aortic root dilatation. Injection of contrast documented no interatrial shunt. MD Mihir Michaels 02/12/2019 03:22 PM
[2019-02-17 06:06] LABS: DRVVT - 53.3 sec (0.0-47.0); dRVVT MIX 42.6 sec (0.0-47.0)
== END 2019-02-15 14:51 | disposition home or self-care (01) | DRG 699 ==
LOC: JER 19:14 → JERBED 02-11 01:25 → J8W 02-11 03:47 → J4W 02-12 21:18
PROVIDERS: ADMIT Internal Medicine; ATTEND Internal Medicine
DX: N28.0 Ischemia and infarction of kidney (principal); E87.1 Hypo-osmolality and hyponatremia; R65.10 Systemic inflammatory response syndrome (SIRS) of non-infectious origin without acute organ dysfunction; I47.2 Ventricular tachycardia; N10 Acute pyelonephritis; D72.829 Elevated white blood cell count, unspecified; R50.9 Fever, unspecified; L40.9 Psoriasis, unspecified; R74.0 Nonspecific elevation of levels of transaminase and lactic acid dehydrogenase [LDH]; R10.32 Left lower quadrant pain
CPT/HCPCS: 36415; 71046-TC-FY; 74175-TC; 74177-TC; 80053; 80061; 80074; 81003; 81241; 83036; 83605; 83690; 83721; 83735; 83930; 84100; 85025; 85027; 85303; 85305; 85306; 85610; 85613; 85730; 85732; 86850; 86900; 86901; 87040; 87086; 93005; 93010; 93306-TC; 93970-TC; 97116-GP; 97161-GP; 99282-25; J0131; J7030